=== PATIENT | male | born 1950 | race Caucasian/White ===

== ENCOUNTER 2020-07-21 20:50 | Observation (INO) | payer OTHER, SELFPAY ==
[2020-07-21 20:59] VITALS: BP 137/66; PULSE 85; RESP 20; TEMP 37.8; O2SAT 96; BMI 24.7
[2020-07-21 23:15] VITALS: PULSE 71; RESP 22; O2SAT 98
[2020-07-21 23:30] VITALS: PULSE 67; RESP 16; O2SAT 96
[2020-07-21 23:30] LABS: INR 1.2 (0.9-1.3)
[2020-07-21 23:31] VITALS: BP 114/58; PULSE 69; RESP 17; O2SAT 97
[2020-07-21 23:33] LABS: PTT Partial Thromboplastin Tim 35 SECONDS (26.4-36.2)
[2020-07-21 23:34] LABS: Bacteria Urine None Seen; RBC Urine None Seen (0-5/HPF)
[2020-07-21 23:35] LABS: Alanine Aminotransferase 73 IU/L (<50); Albumin 2.8 g/dL (3.5-5.0); Alkaline Phosphatase 57 U/L (38-126); Aspartate Aminotransferase 137 IU/L (17-59); Bilirubin Total 0.3 mg/dL (0.2-1.3); Blood Urea Nitrogen 13 mg/dL (9-20); Calcium 7.9 mg/dL (8.4-10.2); Carbon Dioxide 25 mmol/L (22-32); Chloride 108 mmol/L (98-107); Estimated Glomerular Filt Rate > 60.0 mL/min (>60); Globulin 2.9 g/dL (1.7-4.1); Glucose 108 mg/dL (80-110); HEMOLYSIS 22 (0-50); Hematocrit 36.3 % (41-53); Lipase 54 U/L (23-300); Mean Corpuscular Volume 96.9 fL (80-100); Platelet Count 164 X10^3/uL (150-400); Potassium 3.9 mmol/L (3.4-5.1); Red Blood Cell Count 3.75 X10^6/uL (4.5-5.9); Sodium 133 mmol/L (137-145); Total Protein 5.7 g/dL (6.3-8.2); White Blood Cell Count 3.1 X10^3/uL (4.5-11.0)
[2020-07-21 23:37] LABS: Add Manual Diff / Slide Review YES
[2020-07-22] VITALS (21 sets, daily range): BP systolic 101–147; BP diastolic 48–102; PULSE 62–79; RESP 12–28; TEMP 36.3–37.2; O2SAT 96–100; BMI 23.8
[2020-07-22 00:03] LABS: Culture Indicated Urine Cult Not Indicated; Squamous Epithelial Cell Urine 1-5 /HPF (0-5/HPF); WBC Urine 5-10/HPF (0-5/HPF)
[2020-07-22 00:21] LABS: Neutrophils Absolute Manual 2573 /uL (3000-5900); Total Cells Counted 100
[2020-07-22 00:22] LABS: RBC Morphology Normal Morphology
--- NOTE | 2020-07-22 00:46 | ED.ABDPAIN ---
HPI - Abdominal Pain General Chief Complaint: Abdominal Pain Stated Complaint: headache, fever, nausea, lower abdomen tenderness Time Seen by Provider: 07/22/20 00:04 Source: patient Mode of arrival: Ambulatory Limitations: no limitations History of Present Illness HPI narrative: 69-year-old gentleman with a history of Crohn's disease currently on Humira with history of hypertension and hyperlipidemia who has been feeling generally unwell for the last 4 days. Four days ago he describes being significantly chilled and having diarrhea without blood seem to improve with Tylenol. Three days ago had normal temperatures 2 days ago temperature is noted to be 100.8 and yesterday he was seen in [place] at the urgent care clinic diagnosed with urinary tract infection given a dose of IM antibiotics, presumably ceftriaxone, for urinary tract infection. He had been describing some symptoms of increasing frequency, cloudy urine and general malaise. Yesterday describing low temps with mild left lower quadrant pain that now has entirely resolved. He is no longer noting any dysuria. He has no vomiting, no chest pain no palpitations no dyspnea no orthopnea no headache. Related Data Home Medications Medication Instructions Recorded Confirmed CA PANTOTHENATE/FOLIC ACID/VIT 1 tab PO QDAY #0 05/03/12 (MULTIVITAMIN) aspirin 81 mg PO QDAY #0 05/03/12 furosemide [Lasix] 20 mg PO QDAY #0 05/05/12 potassium chloride #0 05/05/12 Allergies Allergy/AdvReac Type Severity Reaction Status Date / Time No Known Drug Allergies Allergy Verified 07/21/20 21:05 Review of Systems Review of Systems Narrative: Remainder of review of systems including constitutional, ENT, cardiovascular, respiratory, GI, , musculoskeletal, skin, neurologic and psychiatric systems reviewed and are unremarkable except as noted in HPI. Patient History Medical History (Updated 07/22/20 @ 04:51 by Janelle Jonas MD) ASCVD (arteriosclerotic cardiovascular disease) Crohn's disease Hyperlipidemia Hypertension Intestinal anastomosis present Social History Smoking Status: Former smoker Smoking Status: Former smoker alcohol intake frequency: 0-2 drinks per day Substance Use Type: does not use Exam Narrative Exam Narrative: General: Healthy appearing, in mild distress. Able to give a complete and coherent history. Well-nourished well-developed HEENT: Moist mucous membranes, normal sclera with reactive pupils, Neck: No JVD, supple Respiratory: Lungs are clear to auscultation, no wheezing no rales no rhonchi. Full and symmetrical air movement Cardiac: Regular rate and rhythm no murmurs no bruits Abdomen: Soft, minimally tender without rebound or guarding, hyperactive bowel tones, no flank pain. 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 Skin: Warm and dry, no rashes Neurologic: Grossly neurologically intact with no obvious asymmetries or abnormalities Extremities: No trauma, well perfused Psych: Cooperative, appropriate insight and affect Initial Vital Signs Initial Vital Signs: Vital Signs Temperature 100.0 F H 07/21/20 20:59 Pulse Rate 85 07/21/20 20:59 Respiratory Rate 20 07/21/20 20:59 Blood Pressure 137/66 07/21/20 20:59 Pulse Oximetry 96 07/21/20 20:59 Course Orders Ordered: ED Orders 07/21/20 22:56 EKG-12 Lead Stat 07/21/20 23:16 Complete Blood Count AUTO DIFF Stat Comprehensive Metabolic Panel Stat Lipase Stat Partial Thromboplastin Time Stat Prothrombin Time INR Stat 07/21/20 23:26 Urine Microscopic Stat 07/22/20 00:58 CT abdomen pelvis w con Stat Discontinued Medications Piperacillin Sod/Tazobactam (Sod 4.5 gm/ Sodium Chloride) 100 mls @ 200 mls/hr IV NOW ONE Stop: 07/22/20 04:51 Vital Signs Vital signs: Vital Signs - 8 hr 07/21/20 20:59 07/21/20 23:15 07/21/20 23:30 Temperature 100.0 F H Pulse Rate 85 71 67 Respiratory Rate 20 22 16 Blood Pressure 137/66 Pulse Oximetry 96 98 96 07/21/20 23:31 07/22/20 00:00 07/22/20 00:01 Temperature Pulse Rate 69 72 71 Respiratory Rate 17 18 19 Blood Pressure 114/58 L 119/59 L Pulse Oximetry 97 99 98 07/22/20 00:30 07/22/20 00:31 07/22/20 01:00 Temperature Pulse Rate 66 63 78 Respiratory Rate 18 19 21 Blood Pressure 109/56 L Pulse Oximetry 99 99 100 07/22/20 01:01 Temperature Pulse Rate 76 Respiratory Rate 18 Blood Pressure 147/67 H Pulse Oximetry 100 MDM - Abdominal Pain Medical Records Attestation: I reviewed the patient's medical records. Lab Data Attestation: I reviewed the patient's lab results. Result diagrams: 07/21/20 23:16 07/21/20 23:16 Labs: Lab Results 07/21/20 07/21/20 07/21/20 Range/Units 23:16 23:16 23:16 WBC 3.1 L (4.5-11.0) X10^3/uL RBC 3.75 L (4.5-5.9) X10^6/uL Hgb 12.0 L (13.5-17.5) g/dL Hct 36.3 L (41-53) % MCV 96.9 (80-100) fL MCH 32.0 (26-34) PG MCHC 33.0 (30-36) % RDW 13.0 (11.6-14.8) % Plt Count 164 (150-400) X10^3/uL Neut % (Auto) Not Reportable Lymph % (Auto) Not Reportable [place] % (Auto) Not Reportable Eos % (Auto) Not Reportable Baso % (Auto) Not Reportable Lymph # (Auto) Not Reportable [place] # (Auto) Not Reportable Baso # (Auto) Not Reportable Total Counted 100 Seg Neutrophils % 56.0 (38-70) % Band Neutrophils % 27.0 H (3-7) % Lymphocytes % (Manual) 6.0 L (25-45) % Atypical Lymphs % 7.0 H ( - 0) % Monocytes % (Manual) 2.0 (2-11) % Eosinophils % (Manual) 1.0 L (2-4) % Basophils % (Manual) 1.0 (0-1) % Neutrophils # (Manual) 2573 L (0488-2471) /uL RBC Morphology Normal morphology PT 14.0 H (10.1-12.7) SECONDS INR 1.2 (0.9-1.3) APTT 35 (26.4-36.2) SECONDS Sodium 133 L (137-145) mmol/L Potassium 3.9 (3.4-5.1) mmol/L Chloride 108 H (98-107) mmol/L Carbon Dioxide 25 (22-32) mmol/L BUN 13 (9-20) mg/dL Creatinine 1.00 (0.66-1.25) mg/dL Estimated GFR > 60.0 (>60) mL/min BUN/Creatinine Ratio 13.0 (6-22) Glucose 108 (80-110) mg/dL Calcium 7.9 L (8.4-10.2) mg/dL Total Bilirubin 0.3 (0.2-1.3) mg/dL AST 137 H (17-59) IU/L ALT 73 H (<50) IU/L Alkaline Phosphatase 57 (38-126) U/L Total Protein 5.7 L (6.3-8.2) g/dL Albumin 2.8 L (3.5-5.0) g/dL Globulin 2.9 (1.7-4.1) g/dL Albumin/Globulin Ratio 1.0 (1.0-2.8) Lipase 54 (23-300) U/L Urine RBC (0-5/HPF) Urine WBC (0-5/HPF) Ur Squamous Epith Cells (0-5/HPF) Urine Bacteria (None) Ur Culture Indicated? 07/21/20 Range/Units 23:26 WBC (4.5-11.0) X10^3/uL RBC (4.5-5.9) X10^6/uL Hgb (13.5-17.5) g/dL Hct (41-53) % MCV (80-100) fL MCH (26-34) PG MCHC (30-36) % RDW (11.6-14.8) % Plt Count (150-400) X10^3/uL Neut % (Auto) Lymph % (Auto) [place] % (Auto) Eos % (Auto) Baso % (Auto) Lymph # (Auto) [place] # (Auto) Baso # (Auto) Total Counted Seg Neutrophils % (38-70) % Band Neutrophils % (3-7) % Lymphocytes % (Manual) (25-45) % Atypical Lymphs % ( - 0) % Monocytes % (Manual) (2-11) % Eosinophils % (Manual) (2-4) % Basophils % (Manual) (0-1) % Neutrophils # (Manual) (0485-8333) /uL RBC Morphology PT (10.1-12.7) SECONDS INR (0.9-1.3) APTT (26.4-36.2) SECONDS Sodium (137-145) mmol/L Potassium (3.4-5.1) mmol/L Chloride (98-107) mmol/L Carbon Dioxide (22-32) mmol/L BUN (9-20) mg/dL Creatinine (0.66-1.25) mg/dL Estimated GFR (>60) mL/min BUN/Creatinine Ratio (6-22) Glucose (80-110) mg/dL Calcium (8.4-10.2) mg/dL Total Bilirubin (0.2-1.3) mg/dL AST (17-59) IU/L ALT (<50) IU/L Alkaline Phosphatase (38-126) U/L Total Protein (6.3-8.2) g/dL Albumin (3.5-5.0) g/dL Globulin (1.7-4.1) g/dL Albumin/Globulin Ratio (1.0-2.8) Lipase (23-300) U/L Urine RBC None seen (0-5/HPF) Urine WBC 5-10/hpf H (0-5/HPF) Ur Squamous Epith Cells 1-5 /hpf (0-5/HPF) Urine Bacteria None seen (None) Ur Culture Indicated? Cult not indicated Point of care testing: Urine Dip Bedside Urine Glucose Negative Bedside Urine Bilirubin - Negative Bedside Urine Ketone - Negative Urine Specific [place] 1.025 Bedside Urine Occult Blood - Negative Bedside Urine pH 6.0 Bedside Urine Protein + 30 Bedside Urine Urobilinogen - Negative Bedside Urine Nitrite - Negative Bedside Urine Leukocytes - Negative Esterase Imaging Data CT scan - abdomen/pelvis: Radiologist's Impression: Abnormal mural thickening of the duodenum and proximal jejunum may reflect infectious or inflammatory enteritis Prior enteric anastomosis in the mid left abdomen with focal dilation without obstruction. Mid right abdomen enterocolonic anastomosis without obstruction Diverticulosis coli without inflammation Left inguinal hernia containing colon without strangulation or obstruction Roscoe Rivera MD ECG Data Attestation: I personally reviewed and interpreted this ECG as follows: Interpretation: Sinus rhythm with first-degree block PACs and occasional paced rhythm Right bundle branch block No acute ischemia MDM Narrative Medical decision making narrative: 69-year-old gentleman with history of Crohn's disease multiple bowel surgeries no evidence of obstruction but 4 days of general malaise with leukocytopenia and significant bandemia and CT scan with suggestion of an infectious enteritis affecting the duodenum and proximal jejunum. As he is on Humira and significant risk for further infection and has been partially treated with a dose of IM ceftriaxone for presumed urinary tract infection yesterday will suggest that he remain in the hospital with IV antibiotics for continued observation at this time Care is reviewed with Mr. Mcmahon, hospitalist RAFA and patient is accepted. Discharge Plan Departure Patient Disposition: Admitted as Observation Clinical Impression: Bandemia Crohn's disease Qualifiers: Gastrointestinal tract location: unspecified location Digestive disease complication type: unspecified complication Qualified Code(s): K50.919 - Crohn's disease, unspecified, with unspecified complications Enteritis, infectious Qualifiers: Enteritis organism: unspecified infectious agent Qualified Code(s): A09 - Infectious gastroenteritis and colitis, unspecified Admit Date/Time: 07/22/20 04:50 Admit Provider: Juanpablo Mcmahon
--- NOTE | 2020-07-22 00:58 | DI.CT.S_ITS ---
PROCEDURE: CT ABDOMEN PELVIS W CON INDICATIONS: fever, bandemia, h/o chrons and abd pain, bowel resections TECHNIQUE: After the administration of intravenous contrast, 5 mm thick sections acquired from the diaphragm to the symphysis. 5 mm coronal and sagittal reformats were acquired. For radiation dose reduction, the following was used: automated exposure control, adjustment of mA and/or kV according to patient size. COMPARISON: [facility], CT, CT ABD PELVIS W CON, 04/15/2015, 21:07. FINDINGS: Image quality: Excellent. ABDOMEN: Lung bases: Lung bases are clear. Heart size is normal. Pacemaker. Solid organs: Liver is normal in size and enhancement. Gallbladder is surgically absent. Biliary system is non dilated. Pancreas enhances normally. Spleen is normal in size and enhancement. No adrenal nodules. Kidneys demonstrate normal size and enhancement, without hydronephrosis. Nonobstructing 3 mm right upper pole renal stone. Peritoneum and bowel: The 2nd portion and 3rd portion of the duodenum and most proximal jejunum have mild diffuse wall thickening without associated surrounding inflammatory change. Mild wall thickening of a loop of small bowel immediately posterior to a previous midline abdominal surgical site. Multiple prior partial bowel resections. No bowel obstruction. No strictures at the anastomotic sites. Left inguinal hernia contains a significant amount of descending colon and sigmoid colon. Diverticulosis without evidence of diverticulitis. Nodes and vessels: No retroperitoneal or mesenteric adenopathy by size criteria. Aorta and inferior vena cava are normal in size. Miscellaneous: No ventral hernias. PELVIS: Genitourinary: Bladder wall thickness is normal. Miscellaneous: Left inguinal hernia contains nonobstructed left colon and sigmoid colon. Bones: No suspicious bony lesions. No vertebral body compression fractures. IMPRESSION: 1. Nonspecific mild thickening of the 2nd portion and 3rd portion of duodenum and proximal jejunum. Consider infectious versus inflammatory enteritis. 2. Multiple prior bowel resections. 3. No evidence of bowel obstruction. 4. Left inguinal hernia containing colon. 5. No abscess cavities. 6. Diverticulosis. 7. Right renal nonobstructing stone. Comment: Final report is concordant with preliminary interpretation provided by [facility]. Dictated by: Jacobo Soares M.D. on 07/22/2020 at 6:57 Approved by: Jacobo Soares M.D. on 07/22/2020 at 7:05
--- NOTE | 2020-07-22 05:23 | P.HP_ITS ---
History of Present Illness History of Present Illness Date Patient Seen: 07/22/20 Chief complaint: headache, fever, nausea, lower abdomen tenderness Narrative: Mr. Vishnu Kendall this 69-year-old male patient who has a past smoker with a past medical history significant for atrial flutter with tachyarrhythmias (s/p pacemaker implantation), coronary artery disease (status post coronary stenting), Crohn's disease, atherosclerotic cardiovascular disease, hypertension and hyperlipidemia who presents to the ER complaints of abdominal pain. Patient reports onset of fevers and chills starting on Thursday. 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 He went to the walk- in clinic where he was diagnosed with urinary tract infection and received a shot of Rocephin and a prescription for ciprofloxacin to take twice daily which he never started. After being seen in the walk-in clinic started developing c rampy left lower abdominal pain with nausea and diarrhea. His pain was progressive with continued fevers and chills prompting him to present to the ER for further evaluation. The patient has a history of Crohn's and denies blood in his stool. He states he has had similar episodes before and been on antibiotics. He has had 4 bowel resections for his Crohn's disease. He denies headaches or dizziness, nasal congestion or sore throat. Reports no complaints of chest pain or palpitations. Has abdominal pain as described. He denies urinary symptoms with no urgency burning or frequency or hematuria. He has nocturia 1 time nightly. Patient is independent in all activities daily. Upon arrival the ER the patient has temperature 100.0?, heart rate of 85, blood pressure 137/66, respiratory rate of 20, saturation 96%. CT of the abdomen pelvis is obtained finding abnormal mural thickening of the duodenum and proximal jejunum which may reflect infectious or inflammatory enteritis. Prior to [place] anastomoses in the mid left abdomen without focal dilation or obstruction mid right abdomen enteric anastomosis with without obstruction diverticulosis without inflammation left inguinal hernia containing colon without strangulation or obstruction. Twelve lead EKG: Atrial flutter with variable block, atrial paced, inferior infarct of undetermined age. On CBC the patient had WBCs of 3.1, hemoglobin of 12 and hematocrit of 36.3 and platelets 164. He has a bandemia of 27% in neutropenia at 2573. His coagulation studies are unremarkable. Chemistries reveal a sodium 133 and otherwise findings are within normal range with a BUN of 13 and creatinine 1.0. His nonfasting glucose is 108. He has a total bilirubin of 0.3, AST 137, ALT of 73 and alkaline phosphatase of 57. Albumin is 2.8. His urinalysis is negative. COVID screening is negative. In the ER the patient received Zosyn 4.5 g IV. He is admitted to the medicine service for infectious enteritis. Patient History Medical History (Updated 07/22/20 @ 06:20 by RAFA Wagoner) ASCVD (arteriosclerotic cardiovascular disease) Crohn's disease History of tachycardia Hyperlipidemia Hypertension Surgical History (Updated 07/22/20 @ 06:20 by RAFA Wagoner) History of abdominal surgery History of heart artery stent History of pacemaker Family & Social History Family History Father Heart attack Mother Diabetes mellitus Sister Non-Hodgkin's lymphoma Safety & Behavioral: Feels Safe in Current Yes Environment Tobacco & Substance use: Smoking Status Former smoker alcohol intake frequency 0-2 drinks per day Substance Use Type does not use Meds Home Medications and Allergies Home Medications Medication Instructions Recorded Confirmed Type aspirin 81 mg PO QDAY #0 05/03/12 07/22/20 History B Complex-Vitamin B12 500 mg DAILY 07/22/20 07/22/20 History Lactobacillus acidophilus 1 cap PO DAILY 07/22/20 07/22/20 History adalimumab [Humira(CF) Pen] 40 mg SUBCUT Q2W 07/22/20 07/22/20 History carvedilol 12.5 mg PO BID 07/22/20 07/22/20 History cyanocobalamin (vitamin B-12) 1,000 mcg IM 07/22/20 History lisinopril 2.5 mg PO DAILY 07/22/20 07/22/20 History magnesium chloride 64 meq PO BID 07/22/20 07/22/20 History simvastatin 5 mg PO ONCE HS 07/22/20 07/22/20 History spironolactone 25 mg PO DAILY 07/22/20 07/22/20 History Allergies Allergy/AdvReac Type Severity Reaction Status Date / Time No Known Drug Allergies Allergy Verified 07/21/20 21:05 Review of Systems Review of Systems ROS: Yes All systems reviewed with the patient and are negative except as otherwise documented Exam Vital Signs (past 8 hours): - 07/21/20 20:59 07/21/20 23:15 07/21/20 23:30 Temperature 100.0 F H Pulse Rate 85 71 67 Respiratory Rate 20 22 16 Blood Pressure 137/66 Pulse Oximetry 96 98 96 07/21/20 23:31 07/22/20 00:00 07/22/20 00:01 Temperature Pulse Rate 69 72 71 Respiratory Rate 17 18 19 Blood Pressure 114/58 L 119/59 L Pulse Oximetry 97 99 98 07/22/20 00:30 07/22/20 00:31 07/22/20 01:00 Temperature Pulse Rate 66 63 78 Respiratory Rate 18 19 21 Blood Pressure 109/56 L Pulse Oximetry 99 99 100 07/22/20 01:01 07/22/20 01:30 07/22/20 01:31 Temperature Pulse Rate 76 66 79 Respiratory Rate 18 28 H Blood Pressure 147/67 H 144/102 H Pulse Oximetry 100 97 07/22/20 01:59 07/22/20 03:00 07/22/20 03:02 Temperature Pulse Rate 72 70 Respiratory Rate 18 23 Blood Pressure 118/58 L Pulse Oximetry 96 96 07/22/20 03:30 07/22/20 04:00 07/22/20 04:30 Temperature Pulse Rate 72 72 70 Respiratory Rate 14 12 19 Blood Pressure 147/68 H 131/65 126/62 Pulse Oximetry 99 97 96 07/22/20 05:00 Temperature Pulse Rate 75 Respiratory Rate 22 Blood Pressure 133/67 Pulse Oximetry 96 Oxygen Delivery Method Room Air Narrative Exam Narrative: GENERAL APPEARANCE: well developed, well nourished, lying semi recumbent in bed, in no acute distress. HEENT: Normocephalic, PERRLA, conjunctiva clear, EOMs intact without nystagmus, no sinus tenderness to percussion, no rhinorrhea, mucous membranes are dry and pink NECK/THYROID: neck supple, no JVD, no carotid bruit, no thyromegaly, trachea midline. LYMPH NODES: no cervical or supraclavicular lymphadenopathy. SKIN: [place], warm and dry, no visible lesions, rashes, ulcerations or petechiae. HEART: Irregularly irregular rhythm, S1-S2, no murmur, no rubs or gallops, brisk capillary refill, no edema LUNGS: clear to auscultation bilaterally, no coarseness crackles or wheezing, no cough present CHEST: Symmetrical movement, no accessory muscle use, good tidal volume. ABDOMEN: Soft, round, tympanic to percussion, generalized abdominal tenderness most prominent in the left lower quadrant, no guarding or peritoneal signs, no organomegaly, no flank tenderness, active bowel tones. BACK: Nontender, no pain on straight leg raise EXTREMITIES: moves all extremities, strength is 5/5 and symmetrical, no deformities or joint effusions. NEUROLOGIC: AAO x4, no focal neurologic deficits, cranial nerves II-XII grossly intact, sensation intact to light touch, hearing grossly normal to speech. PSYCH: Alert and briskly responsive, coooperative, appropriate with stable behavior Objective Labs Result Diagrams: 07/21/20 23:16 07/21/20 23:16 Labs: Laboratory Results - last 24 hr 07/21/20 07/21/20 07/21/20 23:16 23:16 23:16 WBC 3.1 L RBC 3.75 L Hgb 12.0 L Hct 36.3 L MCV 96.9 MCH 32.0 MCHC 33.0 RDW 13.0 Plt Count 164 Neut % (Auto) Not Reportable Lymph % (Auto) Not Reportable [place] % (Auto) Not Reportable Eos % (Auto) Not Reportable Baso % (Auto) Not Reportable Lymph # (Auto) Not Reportable [place] # (Auto) Not Reportable Baso # (Auto) Not Reportable Total Counted 100 Seg Neutrophils % 56.0 Band Neutrophils % 27.0 H Lymphocytes % (Manual) 6.0 L Atypical Lymphs % 7.0 H Monocytes % (Manual) 2.0 Eosinophils % (Manual) 1.0 L Basophils % (Manual) 1.0 Neutrophils # (Manual) 2573 L RBC Morphology Normal morphology PT 14.0 H INR 1.2 APTT 35 Sodium 133 L Potassium 3.9 Chloride 108 H Carbon Dioxide 25 BUN 13 Creatinine 1.00 Estimated GFR > 60.0 BUN/Creatinine Ratio 13.0 Glucose 108 Calcium 7.9 L Total Bilirubin 0.3 AST 137 H ALT 73 H Alkaline Phosphatase 57 Total Protein 5.7 L Albumin 2.8 L Globulin 2.9 Albumin/Globulin Ratio 1.0 Lipase 54 Urine RBC Urine WBC Ur Squamous Epith Cells Urine Bacteria Ur Culture Indicated? 07/21/20 23:26 WBC RBC Hgb Hct MCV MCH MCHC RDW Plt Count Neut % (Auto) Lymph % (Auto) [place] % (Auto) Eos % (Auto) Baso % (Auto) Lymph # (Auto) [place] # (Auto) Baso # (Auto) Total Counted Seg Neutrophils % Band Neutrophils % Lymphocytes % (Manual) Atypical Lymphs % Monocytes % (Manual) Eosinophils % (Manual) Basophils % (Manual) Neutrophils # (Manual) RBC Morphology PT INR APTT Sodium Potassium Chloride Carbon Dioxide BUN Creatinine Estimated GFR BUN/Creatinine Ratio Glucose Calcium Total Bilirubin AST ALT Alkaline Phosphatase Total Protein Albumin Globulin Albumin/Globulin Ratio Lipase Urine RBC None seen Urine WBC 5-10/hpf H Ur Squamous Epith Cells 1-5 /hpf Urine Bacteria None seen Ur Culture Indicated? Cult not indicated Assessment & Plan Assessment & Plan narrative: This is a 69-year-old male patient with history significant for atrial flutter with tachyarrhythmias (s/p pacemaker implantation), coronary artery disease (status post coronary stenting), Crohn's disease, atherosclerotic cardiovascular disease, hypertension and hyperlipidemia who presents to the ER with abdominal plain with findings of infectious enteritis. 1. Infectious enteritis with history Crohn's disease, present on admission, active -fevers and chills for 4 days, treated with Rocephin at walking clinic on Thursday subsequently developing abdominal pain and nausea yesterday. Patient denies blood in the stool. -bands of 27%, white count of 3.1, hemoglobin of 12 and platelets of 164. Pancytopenia, believed to be chronic on Humira for Crohn's disease. -patient has had fevers and chills at home presents with a temperature of 100? upon arrival to the ER. -ordered Zosyn 3.375 g every 6 hours. -ordered Flagyl 500 mg IV every 8 hours. -patient remain NPO, normal saline at 100 cc per 2. Mid left lung pneumonia, acute, present on admission, active -ordered chest x-ray related to significant bandemia, finding patchy airspace disease with mid left lung infiltrates. -patient is on Zosyn as above, 3.375 g IV every 6 hours. 3. Tachy arrhythmias, status post permanent pacemaker, chronic, stable -patient self reports that he has had heart rates up into the 200s and 12 lead EKG today shows atrial flutter with variable conduction at a rate 73 -patient denies chest pain and is unaware of his irregular heart rate. -continue carvedilol 12.5 mg twice daily. 4. Coronary artery disease, chronic, stable -no current complaints of chest pain or palpitations -troponin is 0.019 and a proBNP is 2080. -continue aspirin 81 mg daily with no evidence of bleeding from Crohn's disease. -telemetry 5. Hypertension, chronic, stable -continue home regimen of lisinopril 2.5 mg daily 6. Hyperlipidemia, chronic, stable -continue home regimen of simvastatin 5 mg daily. VTE prophylaxis: Enoxaparin IV fluid: Normal saline 100 cc/hour Diet: NPO Code status: Full code, the patient designates his to be his surrogate decision maker. Due to the severity and progression of his symptoms patient is admitted to the hospital to prevent further complications or adverse events. The patient is admitted as an inpatient requiring IV antibiotics for infectious enteritis in the setting of Crohn's disease and mild pancytopenia. Scores GCS [place] coma scale eye opening: Spontaneous Des coma scale verbal response: Orientated [place] coma scale motor response: Obey commands [place] coma scale total score: 15
--- NOTE | 2020-07-22 05:28 | DI.RAD.S_ITS ---
PROCEDURE: XR CHEST 1V INDICATIONS: Fever, cardiac arrhythmia TECHNIQUE: One view of the chest was acquired. COMPARISON: [facility], , CHEST 1 VIEW, 05/05/2012, 22:15. FINDINGS: Surgical changes and devices: Pacemaker Lungs and pleura: Lungs are clear No pleural effusions or pneumothorax. Mediastinum: Mediastinal contours appear normal. Heart size is normal. Bones and chest wall: No suspicious bony lesions. Overlying soft tissues appear unremarkable. IMPRESSION: No evidence acute pulmonary process. Comment: Findings were discussed with the hospitalist caring for the patient at the time of study dictation. Dictated by: Jacobo Soares M.D. on 07/22/2020 at 8:11 Approved by: Jacobo Soares M.D. on 07/22/2020 at 8:18
[2020-07-22] MEDS: SODIUM CHLORIDE 0.9% 1,000 ML 100 ML IV ×2 (05:45→17:02)
[2020-07-22 05:46] LABS: COVID19 -Nasal RAPID Negative (Negative)
[2020-07-22] MEDS: PIPERACILLIN/TAZO 4.5 GM in SODIUM CHLORIDE 0.9% 100 ML 200 ML IV (05:46)
[2020-07-22 06:29] LABS: Creatine Kinase 311 U/L (55-170)
[2020-07-22 06:33] LABS: Magnesium 1.8 mg/dL (1.6-2.3)
[2020-07-22 06:38] LABS: NT-proBNP (BNP-Adult 18+) 2080 pg/mL (<125)
[2020-07-22 06:42] LABS: Troponin I 0.019 ng/mL (0.01-0.034)
[2020-07-22 07:10] LABS: CKMB % Relative Index 0.9 % (1.5-5.0); Creatine Kinase MB 2.78 ng/mL (<2.37)
[2020-07-22] MEDS: ENOXAPARIN 40 MG/0.4 ML SYRINGE SUBCUT (08:54)
[2020-07-22] MEDS: lisinopriL 5 MG TABLET 2.5 MG PO (08:54)
[2020-07-22] MEDS: ASPIRIN EC 81 MG TABLET PO (08:54)
[2020-07-22] MEDS: carvediloL 12.5 MG TABLET PO ×2 (08:54→20:24)
[2020-07-22] MEDS: ONDANSETRON 4 MG/2 ML INJ IV (09:00)
[2020-07-22] MEDS: SODIUM CHLORIDE 0.9% FLUSH 10 ML IV (09:09)
--- NOTE | 2020-07-22 10:44 | PC.NURSE ---
Addendum entered by Ursula Velez R.N. 07/22/20 10:55: Bed alarm active; patient sleeping Original Note: BTs hypoactive, diarrhea, SBA to bathroom, bed alarm active; pt reports mild nausea, IV zofran; IV fluids infusing; LS clear; VSS
--- NOTE | 2020-07-22 10:50 | CM.DANOTE ---
Patient is a 69 year old male who was admitted on 07/22/20 for Fever/Abd Pain. Pt has [employer] [facility] for insurance and his PCP is at the [facility]. EMR was reviewed. Per MD, pt with a hx of Crohns, AFIB, coronary artery, and hypertension. Pt admitted with infectious enteritis with unknown etiology and pneumonia. MD anticipates possible d/c home tomorrow on orals if he remains stable. SW met bedside with pt and explained role and pt confirms he lives in [place] with his spouse and no other local family. 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 Pt denies any hx of HH or SNF but confirms he has a hx of 4 bowel resections due to his Crohns disease. Pt does not anticipate any SW needs at d/c and was hopeful to discharge home today but confirms he still is not feeling very well today. Pt somewhat somnolent but does state he is feeling quite tired. Plan: SW to follow closely for plan of possible d/c home on orals tomorrow if he is stable via spouse POV. SW to follow for any further identified discharge planning needs. CLARA Piedra Discharge Planning/Care Management CM Discharge Assessment Start: 07/22/20 10:49 Freq: Status: Active Protocol: Document 07/22/20 10:49 BF (Rec: 07/22/20 10:50 BF [id number]) Discharge Planning Assessment Assigned Industrial Controller CLARA Romo DPOA/Assigned Designee Name spouse Advance Directives? No Advance Directives on File No History Provided By Patient,Medical Record Has Patient been admitted in last 30 No days? Prior Living Arrangements House Household Members spouse Type of transporation used prior to Drives own vehicle admit Independent with ADL's Yes Is patient alert and oriented? Yes Caregiver for Another No Barriers to Discharge No Discharge Plan Home Transportation Arrangement Spouse will make herself available to transport home at d/c Referrals Initiated None needed Whiteboard Updated in Patient Room with Yes name and ext. # of Industrial Controller Review Status In Process Please Provide Date Initial DC 07/22/20 Assessment Was Performed Next Review Type Continued Stay Review
[2020-07-22] MEDS: PIPERACILLIN-TAZO 3.375 GM/50 ML FROZ.PIGGY IV ×3 (11:12→22:36)
[2020-07-22] MEDS: SIMVASTATIN 20 MG TABLET 5 MG PO (20:24)
[2020-07-23 00:11] VITALS: BP 99/49; PULSE 54; RESP 18; TEMP 36.8; O2SAT 93
--- NOTE | 2020-07-23 00:42 | PC.NURSE ---
Addendum entered by Paulette Todd R.N. 07/23/20 04:38: BP now 111/54, MAP 73. No s/s of distress. Original Note: BP 99/49, MAP 65. Pt asymptomatic, lying in bed. Encouraged to drink plenty of water to keep hydrated. Pt verbalized understanding. Will repeat again before shift end. Allowing pt to sleep. No s/s of distress.
--- NOTE | 2020-07-23 02:07 | PC.NURSE ---
Patient received sleeping in bed. Easily awakened. Pleasant and Ox3, agreeable to assessment. Denies need for pain medication, requesting to sleep. IVF NS @ 100 ml/hr. Denies nausea. +BS x4. reports x1 loose stool prior day. Tolerating IV antibiotics without s/sx of ASE.
[2020-07-23 04:00] VITALS: BP 111/54; PULSE 67; RESP 18; TEMP 36.3; O2SAT 97
[2020-07-23] MEDS: SODIUM CHLORIDE 0.9% 1,000 ML 100 ML IV (04:09)
[2020-07-23] MEDS: PIPERACILLIN-TAZO 3.375 GM/50 ML FROZ.PIGGY IV (04:15)
[2020-07-23 05:30] LABS: Add Manual Diff / Slide Review YES; Hematocrit 34.8 % (41-53); Hemoglobin 11.3 g/dL (13.5-17.5); Mean Corpuscular HGB Conc 32.6 % (30-36); Mean Corpuscular Hemoglobin 31.7 PG (26-34); Mean Corpuscular Volume 97.3 fL (80-100); Platelet Count 159 X10^3/uL (150-400); Red Blood Cell Count 3.58 X10^6/uL (4.5-5.9); Red Cell Distribution Width 13.3 % (11.6-14.8); White Blood Cell Count 3.1 X10^3/uL (4.5-11.0)
[2020-07-23 05:33] LABS: Alanine Aminotransferase 130 IU/L (<50); Albumin 2.4 g/dL (3.5-5.0); Albumin Globulin Ratio 0.9 (1.0-2.8); Alkaline Phosphatase 51 U/L (38-126); Aspartate Aminotransferase 96 IU/L (17-59); BUN Creatinine Ratio 10.9 (6-22); Bilirubin Total 0.2 mg/dL (0.2-1.3); Blood Urea Nitrogen 13 mg/dL (9-20); Calcium 7.7 mg/dL (8.4-10.2); Carbon Dioxide 26 mmol/L (22-32); Chloride 107 mmol/L (98-107); Estimated Glomerular Filt Rate > 60.0 mL/min (>60); Globulin 2.6 g/dL (1.7-4.1); Glucose 126 mg/dL (80-110); HEMOLYSIS < 15 (0-50); Potassium 3.9 mmol/L (3.4-5.1); Sodium 134 mmol/L (137-145)
[2020-07-23 06:35] LABS: Neutrophils Absolute Manual 2356 /uL (3000-5900); Total Cells Counted 100
[2020-07-23 06:36] LABS: RBC Morphology Normal Morphology
[2020-07-23 07:59] VITALS: BP 118/65; PULSE 62; RESP 18; TEMP 36.4; O2SAT 93
[2020-07-23] MEDS: SODIUM CHLORIDE 0.9% FLUSH 10 ML IV (09:03)
[2020-07-23 09:05] VITALS: BP 118/65; PULSE 62
[2020-07-23] MEDS: carvediloL 12.5 MG TABLET PO (09:05)
[2020-07-23] MEDS: ASPIRIN EC 81 MG TABLET PO (09:05)
[2020-07-23] MEDS: lisinopriL 5 MG TABLET 2.5 MG PO (09:05)
[2020-07-23] MEDS: ENOXAPARIN 40 MG/0.4 ML SYRINGE SUBCUT (09:06)
--- NOTE | 2020-07-23 09:18 | PM.DS.1 ---
History of Present Illness History of Present Illness Date Patient Seen: 07/23/20 Time Patient Seen: 09:19 Chief complaint: headache, fever, nausea, lower abdomen tenderness Narrative: As per RAFA Wagoner: Mr. Vishnu Kendall this 69-year-old male patient who has a past smoker with a past medical history significant for atrial flutter with tachyarrhythmias (s/p pacemaker implantation), coronary artery disease (status post coronary stenting), Crohn's disease, atherosclerotic cardiovascular disease, hypertension and hyperlipidemia who presents to the ER complaints of abdominal pain. Patient reports onset of fevers and chills starting on Thursday. 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 He went to the walk-in clinic where he was diagnosed with urinary tract infection and received a shot of Rocephin and a prescription for ciprofloxacin to take twice daily which he never started. After being seen in the walk-in clinic started developing crampy left lower abdominal pain with nausea and diarrhea. His pain was progressive with continued fevers and chills prompting him to present to the ER for further evaluation. The patient has a history of Crohn's and denies blood in his stool. He states he has had similar episodes before and been on antibiotics. He has had 4 bowel resections for his Crohn's disease. He denies headaches or dizziness, nasal congestion or sore throat. Reports no complaints of chest pain or palpitations. Has abdominal pain as described. He denies urinary symptoms with no urgency burning or frequency or hematuria. He has nocturia 1 time nightly. Patient is independent in all activities daily. Upon arrival the ER the patient has temperature 100.0?, heart rate of 85, blood pressure 137/66, respiratory rate of 20, saturation 96%. CT of the abdomen pelvis is obtained finding abnormal mural thickening of the duodenum and proximal jejunum which may reflect infectious or inflammatory enteritis. Prior to Nicholas anastomoses in the mid left abdomen without focal dilation or obstruction mid right abdomen enteric anastomosis with without obstruction diverticulosis without inflammation left inguinal hernia containing colon without strangulation or obstruction. Twelve lead EKG: Atrial flutter with variable block, atrial paced, inferior infarct of undetermined age. On CBC the patient had WBCs of 3.1, hemoglobin of 12 and hematocrit of 36.3 and platelets 164. He has a bandemia of 27% in neutropenia at 2573. His coagulation studies are unremarkable. Chemistries reveal a sodium 133 and otherwise findings are within normal range with a BUN of 13 and creatinine 1.0. His nonfasting glucose is 108. He has a total bilirubin of 0.3, AST 137, ALT of 73 and alkaline phosphatase of 57. Albumin is 2.8. His urinalysis is negative. COVID screening is negative. In the ER the patient received Zosyn 4.5 g IV. He is admitted to the medicine service for infectious enteritis. Discharge Providers Provider Date of admission: 07/22/20 04:50 Discharge Date: 07/23/20 Consults: 07/22/20 05:38 Consult to Discharge Planning Routine Comment: Discharge provider: Juanpablo Samuels DO Summary Hospital Course Discharge Diagnosis: 1. Infectious enteritis with history Crohn's disease, present on admission, active 2. possible Mid left lung pneumonia, acute, present on admission, active 3. Tachy arrhythmias, status post permanent pacemaker, chronic, stable 4. Coronary artery disease, chronic, stable 5. Hypertension, chronic, stable 6. Hyperlipidemia, chronic, stable Hospital Course: This is a 69-year-old male patient with history significant for atrial flutter with tachyarrhythmias (s/p pacemaker implantation), coronary artery disease (status post coronary stenting), Crohn's disease, atherosclerotic cardiovascular disease, hypertension and hyperlipidemia who presents to the ER with abdominal plain with findings of infectious enteritis. He improved much more quickly than expected and by the following day had improvement in his symptoms and improvement in abdominal pain. CXR did show a possible mid left lung pneumonia, however given lack of pulmonary symptoms this was less likely. He recieved zosyn on admission and this was continued, will discharge on cipro and flagyl for [address] appearance and crohn's disease and immunosuppression. Exam Vital Signs (past 8 hours): - 07/23/20 04:00 07/23/20 07:59 07/23/20 09:05 Temperature 97.4 F L 97.6 F Pulse Rate 67 62 62 Respiratory Rate 18 18 Blood Pressure 111/54 L 118/65 118/65 Pulse Oximetry 97 93 Oxygen Delivery Method Room Air Oxygen Flow Rate 0 Narrative Exam Narrative: GENERAL APPEARANCE: well developed, well nourished, in no acute distress. SKIN: [place], warm and dry, no visible lesions, rashes, ulcerations or petechiae. HEART: Irregularly irregular rhythm, S1-S2, no murmur, no rubs or gallops, brisk capillary refill, no edema CHEST: Symmetrical movement, no accessory muscle use, good tidal volume. ABDOMEN: Soft, non-tender, non-distended EXTREMITIES: moves all extremities, strength is 5/5 and symmetrical, no deformities or joint effusions. NEUROLOGIC: AAO x4, no focal neurologic deficits, cranial nerves II-XII grossly intact, hearing grossly normal to speech. PSYCH: Alert and briskly responsive, coooperative, appropriate with stable behavior Objective Labs Result Diagrams: 07/23/20 05:05 07/23/20 05:05 Labs: Laboratory Results - last 24 hr 07/23/20 07/23/20 05:05 05:05 WBC 3.1 L RBC 3.58 L Hgb 11.3 L Hct 34.8 L MCV 97.3 MCH 31.7 MCHC 32.6 RDW 13.3 Plt Count 159 Neut % (Auto) Not Reportable Lymph % (Auto) Not Reportable Wagoner % (Auto) Not Reportable Eos % (Auto) Not Reportable Baso % (Auto) Not Reportable Lymph # (Auto) Not Reportable Wagoner # (Auto) Not Reportable Baso # (Auto) Not Reportable Total Counted 100 Seg Neutrophils % 60.0 Band Neutrophils % 16.0 H Lymphocytes % (Manual) 11.0 L Monocytes % (Manual) 12.0 H Eosinophils % (Manual) 1.0 L Neutrophils # (Manual) 2356 L RBC Morphology Normal morphology Sodium 134 L Potassium 3.9 Chloride 107 Carbon Dioxide 26 BUN 13 Creatinine 1.19 Estimated GFR > 60.0 BUN/Creatinine Ratio 10.9 Glucose 126 H Calcium 7.7 L Total Bilirubin 0.2 AST 96 H ALT 130 H Alkaline Phosphatase 51 Total Protein 5.0 L Albumin 2.4 L Globulin 2.6 Albumin/Globulin Ratio 0.9 L [facility] Medical History (Updated 07/22/20 @ 06:20 by RAFA Wagoner) ASCVD (arteriosclerotic cardiovascular disease) Crohn's disease History of tachycardia Hyperlipidemia Hypertension Surgical History (Updated 07/22/20 @ 06:20 by RAFA Wagoner) History of abdominal surgery History of heart artery stent History of pacemaker Family History Father Heart attack Mother Diabetes mellitus Sister Non-Hodgkin's lymphoma Social History household members: spouse Smoking Status: Former smoker alcohol intake: current Discharge Plan Discharge Plan Patient Disposition: Home Provider Discharge Comment: You were admitted to the hospital with a possible infectious enteritis. I recommend a short course of antibiotics, 3 days. [facility] C. difficile testing was negative. Discharge orders & Medications Prescriptions: New ciprofloxacin HCl 750 mg tablet 750 mg PO DAILY 3 Days Qty: 3 RF: 0 metronidazole 500 mg tablet 500 mg PO TID 3 Days Qty: 9 RF: 0 Continued aspirin 81 MG tablet,delayed release (DR/EC) 81 mg PO QDAY Qty: 0 RF: 0 Humira(CF) Pen 40 mg/0.4 mL pen injector kit 40 mg SUBCUT Q2W RF: 0 carvedilol 12.5 mg tablet 12.5 mg PO BID RF: 0 simvastatin 5 mg tablet 5 mg PO ONCE HS RF: 0 lisinopril 2.5 mg tablet 2.5 mg PO DAILY RF: 0 spironolactone 25 mg tablet 25 mg PO DAILY RF: 0 magnesium chloride tablet 64 mg PO BID RF: 0 cyanocobalamin (vitamin B-12) auto-injector See Rx Instructions .ROUTE .COMPLEX RF: 0 B Complex-Vitamin B12 tablet 500 mg DAILY RF: 0 Lactobacillus acidophilus capsule 1 cap PO DAILY RF: 0 Discharge Health Status Multidrug resistant organism: No MDRO Diet/Activity/Treatments Diet: Diet as Tolerated Activity: As tolerated Visit Report/Discharge Packet Instructions: Ciprofloxacin, Metronidazole, DI for Enteritis Quality VTE Deep Vein Thrombosis/Pulmonary Embolism Present on Admission: No
[2020-07-23 10:48] LABS: Clostridium Difficile Tox PCR Negative for C. diff
--- NOTE | 2020-07-23 11:04 | PC.NURSE ---
Day shift: Pt had the option of having AM dose of IV antibiotic and he chose not to have it. Tele has been d/c'd per Dr Samuels. Pt resting in bed with no complaints. His spouse should be here from [place] in less than an hour. Pt to d/c home at that time. Stool is NEG for C. diff.
--- NOTE | 2020-07-23 11:51 | PC.NURSE ---
Day shift: Paperwork signed and all questions answered. scripts sent to Pt's pharmacy in [place]. Pt has all personal belongings. No c/o pain or discomfort at discharge. Denied any nausea as well. Taken to car driven by his spouse in by JOSE Kelley.
== END 2020-07-23 11:54 | disposition home or self-care (01) ==
LOC: ED 07-22 00:04 → AC 07-22 04:51 → ICU 07-27 09:25
PROVIDERS: Internal Medicine; Admitting Provider Nurse Practitioner Adult Health; Emergency Provider Emergency Medicine; Referring Provider Emergency Medicine; Visit Provider Nurse Practitioner Adult Health
DX: A09 Infectious gastroenteritis and colitis, unspecified (principal); K50.90 Crohn's disease, unspecified, without complications; I48.92 Unspecified atrial flutter; I25.10 Atherosclerotic heart disease of native coronary artery without angina pectoris; I10 Essential (primary) hypertension; E78.5 Hyperlipidemia, unspecified; Z87.891 Personal history of nicotine dependence; Z95.818 Presence of other cardiac implants and grafts; Z95.0 Presence of cardiac pacemaker; Z20.822 Contact with and (suspected) exposure to COVID-19
CPT/HCPCS: 36415; 71045; 74177; 80053; 81003; 81015; 82550; 82553; 83690; 83735; 83880; 84484; 85007; 85025; 85610; 85730; 87493; 87635; 93005; 96374; 99284; C9803; G0378; J1650; J2405; J2543; Q9967

== ENCOUNTER 2022-05-24 18:13 | Emergency (ER) | payer OTHER, SELFPAY ==
[2020-07-22 05:14] VITALS: BMI 23.8
[2022-05-24 18:19] VITALS: BP 164/76; PULSE 82; RESP 16; TEMP 36.2; O2SAT 97; BMI 23.6
--- NOTE | 2022-05-24 19:42 | ED_ITS ---
HPI - Male Genitourinary General Chief complaint: Urogenital-Male Stated complaint: Blood in urine, noticed today Time Seen by Provider: 05/24/22 19:41 Source: patient Mode of arrival: Ambulatory Limitations: no limitations History of Present Illness HPI Narrative: This is a 71-year-old male who presents with complaint of hematuria he states his urine has been pink and some mild right flank pain. Patient states he has had hematuria before but always had dysuria was found have bladder infections. Patient's notes states no dysuria but has had some urgency sense of frequency. He denies fevers some little bit of chills today. No chest pain or shortness of breath. No abdominal pain anteriorly. No testicular pain. No black or bloody stools. Patient is on aspirin daily. He has a history of AICD, Humira for Crohn's disease, medication for hypertension, dyslipidemia as well as magnesium and potassium supplementation. He states AICD is for tachycardia, he has had cardiac stents. He has had 4 bowel resection for his Crohn's. He denies any drug allergies. No tobacco, 1 alcoholic drink nightly, no illicit. Related Data Home Medications Medication Instructions Recorded Confirmed aspirin 81 mg tablet,delayed 81 mg PO QDAY ##0 05/03/12 07/22/20 release B Complex-Vitamin B12 500 mg DAILY 07/22/20 07/22/20 Lactobacillus acidophilus 1 cap PO DAILY 07/22/20 07/22/20 adalimumab 40 mg/0.4 mL 40 mg SUBCUT Q2W 07/22/20 07/22/20 subcutaneous pen kit (Humira(CF) Pen) carvedilol 12.5 mg tablet 12.5 mg PO BID 07/22/20 07/22/20 cyanocobalamin (vitamin B-12) See Rx Instructions .Route .COMPLEX 07/22/20 07/22/20 lisinopril 2.5 mg tablet 2.5 mg PO DAILY 07/22/20 07/22/20 magnesium chloride 64 mg PO BID 07/22/20 07/22/20 simvastatin 5 mg tablet 5 mg PO ONCE HS 07/22/20 07/22/20 spironolactone 25 mg tablet 25 mg PO DAILY 07/22/20 07/22/20 Previous Rx's Medication Instructions Recorded tamsulosin 0.4 mg capsule (Flomax) 0.4 mg PO DAILY #7 caps 05/24/22 Allergies Allergy/AdvReac Type Severity Reaction Status Date / Time No Known Drug Allergies Allergy Verified 05/24/22 18:19 Review of Systems Review of Systems ROS Unobtainable: All systems reviewed & are unremarkable except as noted in HPI and below Patient History Medical History ASCVD (arteriosclerotic cardiovascular disease) Crohn's disease History of tachycardia Hyperlipidemia Hypertension Surgical History History of abdominal surgery History of heart artery stent History of pacemaker Family History Father Heart attack Mother Diabetes mellitus Sister Non-Hodgkin's lymphoma Social History household members: spouse Smoking Status: Former smoker alcohol intake: current Smoking Status: Former smoker alcohol intake frequency: a few times a month Substance Use Type: does not use Exam Narrative Exam Narrative: GENERAL: Alert and oriented x three, male in mild distress. HEENT: Head normocephalic, atraumatic, EOMI, pupils reactive, face symmetric, moist mucous membranes NECK: Supple, full range of motion CARDIOVASCULAR: Regular rate and rhythm without murmurs, rubs or gallops. RESPIRATORY: Breath sounds equal bilaterally, no wheezes rales or rhonchi. ABDOMEN: Soft, nontender. Normoactive bowel sounds all 4 quadrants. No guarding or rebound, rigidity, no mass : No CVA tenderness EXTREMITIES: Normal range of motion, no clubbing or edema. Neurovascularly intact NEUROLOGICAL: Cranial nerves II through XII grossly intact. Moving all extremities SKIN: Warm, dry, no petechiae, no rashes or lesions. Initial Vital Signs Initial Vital Signs: Vital Signs Temperature 97.2 F L 05/24/22 18:19 Pulse Rate 82 05/24/22 18:19 Respiratory Rate 16 05/24/22 18:19 Blood Pressure 164/76 H 05/24/22 18:19 Pulse Oximetry 97 05/24/22 18:19 Oxygen Delivery Method 05/24/22 18:19 Course Orders Ordered: Discontinued Medications Tamsulosin HCl (Tamsulosin 0.4 Mg Capsule) 0.4 mg PO NOW ONE Stop: 05/24/22 21:22 Last Admin: 05/24/22 21:28 Dose: 0.4 mg Documented By: AT Vital Signs Vital signs: Vital Signs - 8 hr 05/24/22 18:19 05/24/22 20:18 Temperature 97.2 F L Pulse Rate 82 65 Respiratory Rate 16 18 Blood Pressure 164/76 H 134/64 Pulse Oximetry 97 99 Oxygen Delivery Method Room Air Room Air MDM - Male Genitourinary Lab Data Result diagrams: 05/24/22 19:15 05/24/22 19:15 Labs: Lab Results 05/24/22 05/24/22 05/24/22 Range/Units 18:53 19:15 19:15 WBC 6.0 (4.5-11.0) X10^3/uL RBC 3.74 L (4.5-5.9) X10^6/uL Hgb 12.1 L (13.5-17.5) g/dL Hct 35.7 L (41-53) % MCV 95.5 (80-100) fL MCH 32.4 (26-34) PG MCHC 33.9 (30-36) % RDW 13.1 (11.6-14.8) % Plt Count 205 (150-400) X10^3/uL Neut % (Auto) 71.4 (50-75) % Lymph % (Auto) 14.6 L (25-40) % Camden % (Auto) 10.6 (3-14) % Eos % (Auto) 2.9 (2-4) % Baso % (Auto) 0.5 (0-2) % Neut # (Auto) 4300 (7122-5464) /uL Lymph # (Auto) 900 L (5255-0032) /uL Cam[place] # (Auto) 600 (0-900) /uL Eos # (Auto) 200 (0-450) /uL Baso # (Auto) 0 (0-100) /uL Sodium 137 (137-145) mmol/L Potassium 4.2 (3.4-5.1) mmol/L Chloride 104 (98-107) mmol/L Carbon Dioxide 24 (22-32) mmol/L BUN 18 (9-20) mg/dL Creatinine 1.06 (0.66-1.25) mg/dL Estimated GFR > 60 (>60) mL/min BUN/Creatinine Ratio 17.0 (6-22) Glucose 95 (80-110) mg/dL Calcium 7.7 L (8.4-10.2) mg/dL Urine RBC >100/hpf H (0-5/HPF) Urine WBC 0-1/hpf (0-5/HPF) Urine Bacteria None seen (None) Ur Culture Indicated? Cult not indicated Urine Dip Bedside Urine Glucose Negative Bedside Urine Bilirubin - Negative Bedside Urine Ketone - Negative Urine Specific Brunson 1.015 Bedside Urine Occult Blood +++ Bedside Urine pH 6.0 Bedside Urine Protein +/- 15 Bedside Urine Urobilinogen - Negative Bedside Urine Nitrite - Negative Bedside Urine Leukocytes - Negative Esterase Imaging Data CT scan - abdomen/pelvis: Radiologist's Impression: Close Abdomen/Pelvis CT (Signed) Lisandro Hinton - 05/24/22 Chest X-Ray (Signed) Jacobo Soares - 07/22/20 Telemetry Strips 07/22/20 Abdomen/Pelvis CT (Signed) Jacobo Soares - 07/22/20 Launch?[place] [address] CT Scan Report Signed Patient: Vishnu Robins MR#: [id number] : 1950 Acct:[id number] Age/Sex: 71 / M Date of Service: 05/24/22 Loc: ED Accession Number: [id number] ?? Procedure: CT kidney ureter bladder (KUB) Ordering Provider: Tia Manning D.O. PROCEDURE:? CT KIDNEY URETER BLADDER (KUB) ? INDICATIONS:? hematuria, flank pain ? TECHNIQUE:? Axial sections were acquired from the lung bases to the pubic symphysis.? Coronal and sagittal reformats were performed.? For radiation dose reduction, the following was used: ?automated exposure control, adjustment of mA and/or kV according to patient size.? ? COMPARISON:? CT, CT ABDOMEN PELVIS W CON, 07/22/2020, 1:18. ? FINDINGS:? Image quality:? Excellent.? ? Lung bases:? Unremarkable.? ? Heart:? No significant findings. ? URINARY: Right Kidney:? Several punctate calculi which themselves are not obstructive but there is [id number] overall right-sided hydronephrosis.? Right Ureter:? Hydroureter extends from the renal pelvis inferiorly to the bladder level. ?Just above the bladder level there is a 3 mm distal right ureteral stone and slightly below that virtually at the posterior bladder margin there is a 7 mm calculus that measures 943 Hounsfield units.? ? Left Kidney:? Several punctate calculi without hydronephrosis.? Left Ureter:? No hydroureter.? ? Bladder:? Normal wall thickness. No stones. ? ? ? ABDOMEN: Liver:? Unremarkable.? ? Gallbladder:? Unremarkable.? ? Biliary ducts:? Unremarkable.? ? Pancreas:? Unremarkable.? ? Spleen:? Unremarkable.? ? Adrenal Glands:? Unremarkable.? ? ? Stomach and Bowel:? Stomach, small bowel loops, and colon are unremarkable.? Peritoneum:? No abnormal intraperitoneal fluid.? No free air.? ? Ventral Wall: ? No hernia.? Abdominal Nodes:? No enlarged retroperitoneal or mesenteric lymph nodes.? Vessels:? Aorta and inferior vena cava are normal in size.? ? PELVIS: Pelvic Organs:? Unremarkable.? ? Pelvic Nodes: Unremarkable. Miscellaneous: No right-sided inguinal hernia is seen, but there is a moderately large left-sided inguinal hernia without evidence of incarceration or strangulation. ? Bones:? Unremarkable. ? IMPRESSION:? ? [id number] right-sided hydronephrosis and hydroureter associated with 2 far distal right ureteral stones the largest of which measures up to 7 mm with a radiodensity of 943 Hounsfield units.? A stone of this size may not pass without urologic intervention into the bladder lumen. ? Several punctate renal collecting system calculi are present bilaterally, none of which are obstructive. ? Moderately large left inguinal hernia extending to the upper scrotum level, without evidence of bowel incarceration or strangulation ? Dictated by: Lisandro Hinton M.D. on 05/24/2022 at 20:54 ? ? Approved by: Lisandro Hinton M.D. on 05/24/2022 at 21:01?? MDM Narrative Medical decision making narrative: This is a 71-year-old male with complaint of hematuria with a little bit of slight right flank pain. Patient's pain is well controlled. His hemoglobin stable, renal functions normal, electrolytes show no major changes. Patient's urine shows hematuria but no signs of infection. KUB shows 2 stones largest which is 7 mm far distal on the right ureteral side. Patient started on Flomax, given return precautions and referral to Urology to follow up. Also noted patient has a large left inguinal hernia recommended a follow-up for this and return precautions as well. Patient feels comfortable with this plan he defers anything stronger than Tylenol or ibuprofen for pain at home. Patient is aware of his left inguinal hernia. We discussed and he knows surgeon Dr. Bishop at [facility] that he can follow-up with. Discharge Plan Departure Patient Disposition: Home Clinical Impression: Kidney stone on right side, Inguinal hernia, left Instructions: DI for Kidney Stones Activity Restrictions/Additional Instructions: You have kidney stones today. If your symptoms are persisting please follow up with Urology call Thursday morning for an appointment. Take Flomax once daily until gone. You can take Tylenol up to a 1000 mg every 6 hours and/or ibuprofen up to 600 mg every 6 hours. Prescription sent to [facility] in [place]. Please return for fevers, rapidly worsening flank or back pain, persistent vomiting, inability urinate, probably worsening abdominal back or flank pain, passing out or other new or concerning changes. Prescriptions: New tamsulosin [Flomax] 0.4 mg capsule 0.4 mg PO DAILY Qty: 7 0RF No Action aspirin 81 MG tablet,delayed release (DR/EC) 81 mg PO QDAY Qty: 0 Humira(CF) Pen 40 mg/0.4 mL pen injector kit 40 mg SUBCUT Q2W carvedilol 12.5 mg tablet 12.5 mg PO BID simvastatin 5 mg tablet 5 mg PO ONCE HS lisinopril 2.5 mg tablet 2.5 mg PO DAILY spironolactone 25 mg tablet 25 mg PO DAILY magnesium chloride tablet 64 mg PO BID Label Comments: Pt. takes 2 tabs. cyanocobalamin (vitamin B-12) auto-injector See Rx Instructions .ROUTE .COMPLEX Rx Instructions: 1,000 mcg intramuscularly B Complex-Vitamin B12 tablet 500 mg DAILY Lactobacillus acidophilus capsule 1 cap PO DAILY Referrals: Roscoe Patton MD [Physician] - Stand Alone Forms: Patient Portal/API
[2022-05-24 19:44] LABS: Blood Urea Nitrogen 18 mg/dL (9-20); Calcium 7.7 mg/dL (8.4-10.2); Carbon Dioxide 24 mmol/L (22-32); Chloride 104 mmol/L (98-107); Estimated Glomerular Filt Rate > 60 mL/min (>60); Glucose 95 mg/dL (80-110); HEMOLYSIS 24 (0-50); Potassium 4.2 mmol/L (3.4-5.1); Sodium 137 mmol/L (137-145)
--- NOTE | 2022-05-24 19:53 | DI.CT.S_ITS ---
PROCEDURE: CT KIDNEY URETER BLADDER (KUB) INDICATIONS: hematuria, flank pain TECHNIQUE: Axial sections were acquired from the lung bases to the pubic symphysis. Coronal and sagittal reformats were performed. For radiation dose reduction, the following was used: automated exposure control, adjustment of mA and/or kV according to patient size. COMPARISON: CT, CT ABDOMEN PELVIS W CON, 07/22/2020, 1:18. FINDINGS: Image quality: Excellent. Lung bases: Unremarkable. Heart: No significant findings. URINARY: Right Kidney: Several punctate calculi which themselves are not obstructive but there is [id number] overall right-sided hydronephrosis. Right Ureter: Hydroureter extends from the renal pelvis inferiorly to the bladder level. Just above the bladder level there is a 3 mm distal right ureteral stone and slightly below that virtually at the posterior bladder margin there is a 7 mm calculus that measures 943 Hounsfield units. Left Kidney: Several punctate calculi without hydronephrosis. Left Ureter: No hydroureter. Bladder: Normal wall thickness. No stones. ABDOMEN: Liver: Unremarkable. Gallbladder: Unremarkable. Biliary ducts: Unremarkable. Pancreas: Unremarkable. Spleen: Unremarkable. Adrenal Glands: Unremarkable. Stomach and Bowel: Stomach, small bowel loops, and colon are unremarkable. Peritoneum: No abnormal intraperitoneal fluid. No free air. Ventral Wall: No hernia. Abdominal Nodes: No enlarged retroperitoneal or mesenteric lymph nodes. Vessels: Aorta and inferior vena cava are normal in size. PELVIS: Pelvic Organs: Unremarkable. Pelvic Nodes: Unremarkable. Miscellaneous: No right-sided inguinal hernia is seen, but there is a moderately large left-sided inguinal hernia without evidence of incarceration or strangulation. Bones: Unremarkable. IMPRESSION: Baye-ut-yeszbbxq right-sided hydronephrosis and hydroureter associated with 2 far distal right ureteral stones the largest of which measures up to 7 mm with a radiodensity of 943 Hounsfield units. A stone of this size may not pass without urologic intervention into the bladder lumen. Several punctate renal collecting system calculi are present bilaterally, none of which are obstructive. Moderately large left inguinal hernia extending to the upper scrotum level, without evidence of bowel incarceration or strangulation Dictated by: Lisandro Hinton M.D. on 05/24/2022 at 20:54 Approved by: Lisandro Hinton M.D. on 05/24/2022 at 21:01
[2022-05-24 19:57] LABS: Add Manual Diff / Slide Review NO; Basophils Absolute Auto 0 /uL (0-100); Basophils Percent Auto 0.5 % (0-2); Eosinophils Absolute Auto 200 /uL (0-450); Eosinophils Percent Auto 2.9 % (2-4); Hematocrit 35.7 % (41-53); Hemoglobin 12.1 g/dL (13.5-17.5); Lymphocytes Absolute Auto 900 /uL (1100-4500); Lymphocytes Percent Auto 14.6 % (25-40); Mean Corpuscular HGB Conc 33.9 % (30-36); Mean Corpuscular Hemoglobin 32.4 PG (26-34); Mean Corpuscular Volume 95.5 fL (80-100); Monocytes Absolute Auto 600 /uL (0-900); Monocytes Percent Auto 10.6 % (3-14); Neutrophils Absolute Auto 4300 /uL (1500-7000); Neutrophils Percent Auto 71.4 % (50-75); Platelet Count 205 X10^3/uL (150-400); Red Blood Cell Count 3.74 X10^6/uL (4.5-5.9); Red Cell Distribution Width 13.1 % (11.6-14.8)
[2022-05-24 20:14] LABS: Bacteria Urine None Seen; Culture Indicated Urine Cult Not Indicated; RBC Urine >100/HPF (0-5/HPF); WBC Urine 0-1/HPF (0-5/HPF)
[2022-05-24 20:18] VITALS: BP 134/64; PULSE 65; RESP 18; O2SAT 99
[2022-05-24 21:26] VITALS: BP 134/63; PULSE 65; RESP 16; O2SAT 97
[2022-05-24] MEDS: TAMSULOSIN 0.4 MG CAPSULE PO (21:28)
== END 2022-05-24 21:33 | disposition home or self-care (01) ==
PROVIDERS: Emergency Provider Emergency Medicine
DX: N20.0 Calculus of kidney (principal); K40.90 Unilateral inguinal hernia, without obstruction or gangrene, not specified as recurrent
CPT/HCPCS: 36415; 74176; 80048; 81003; 81015; 85025; 99284

== ENCOUNTER 2023-01-25 17:57 | Emergency (ER) | payer OTHER, SELFPAY ==
[2020-07-22 05:14] VITALS: BMI 23.8
[2023-01-25 18:00] VITALS: BP 163/81; PULSE 76; RESP 16; TEMP 36.8; O2SAT 98; BMI 24.0
--- NOTE | 2023-01-25 18:05 | ED.ARRPALP ---
HPI - Arrhythmia/Palpitations General Chief Complaint: Arrhythmia/Palpitations Stated Complaint: tachy/ palpitations Time Seen by Provider: 01/25/23 18:01 Source: patient and EMS Mode of arrival: EMS History of Present Illness HPI narrative: 72-year-old gentleman with a history of coronary artery disease, tachyarrhythmia including atrial fibrillation and is post pacemaker/defibrillator placement, Crohn's disease with both small and large intestine fistula and short-bowel syndrome,. hypertension, hyperlipidemia who presents today complaining of palpitations while he was sitting on the couch. Simply noticed his heart rate was up in the 80s and it is usually in the mid 70s. Not associated with pain, diaphoresis, dyspnea, orthopnea. Has not noticed increased lower extremity edema. Does note that he was started on mexiletine about 6 weeks ago and has had severe nausea and anorexia. He does have a follow-up appointment in 48 hours with his filler sifter helper. In the meantime he was seen at the [facility] on January 23 for consultation regarding cardiac ablation in light of recurrent ventricular tachycardia with ICD shocks. He was admitted to [facility] on January 14 with ventricular tachycardia that required electrical cardioversion (unclear why he did not have his defibrillator fire) with that admission he is amiodarone had been increased to 400 twice a day and mexiletine increased to 150 3 times a day. He was seen again on January [address] [facility] ER concerned that he was again having episodes of V-tach. Pacemaker interrogation at that time suggested supraventricular tachycardia with no defibrillations administered. Patient reports that he was diagnosed with pneumonia a week ago is on antibiotics does not remember what kind or who actually made the diagnosis. Medications currently include recently decreased dose of amiodarone to 200 mg b.i.d., mexiletine and quinidine was added as of Thursday. He is also on Humira for his Crohn's disease, aspirin, carvedilol, lisinopril, magnesium,simvastatin, spironolactone and vitamin B12 Related Data Home Medications Medication Instructions Recorded Confirmed aspirin 81 mg tablet,delayed 81 mg PO QDAY ##0 05/03/12 07/22/20 release B Complex-Vitamin B12 500 mg DAILY 07/22/20 07/22/20 Lactobacillus acidophilus 1 cap PO DAILY 07/22/20 07/22/20 adalimumab 40 mg/0.4 mL 40 mg SUBCUT Q2W 07/22/20 07/22/20 subcutaneous pen kit (Humira(CF) Pen) carvedilol 12.5 mg tablet 12.5 mg PO BID 07/22/20 07/22/20 cyanocobalamin (vitamin B-12) See Rx Instructions .Route .COMPLEX 07/22/20 07/22/20 lisinopril 2.5 mg tablet 2.5 mg PO DAILY 07/22/20 07/22/20 magnesium chloride 64 mg PO BID 07/22/20 07/22/20 simvastatin 5 mg tablet 5 mg PO ONCE HS 07/22/20 07/22/20 spironolactone 25 mg tablet 25 mg PO DAILY 07/22/20 07/22/20 Previous Rx's Medication Instructions Recorded tamsulosin 0.4 mg capsule (Flomax) 0.4 mg PO DAILY #7 caps 05/24/22 Allergies Allergy/AdvReac Type Severity Reaction Status Date / Time No Known Drug Allergies Allergy Verified 01/25/23 18:03 Review of Systems Review of Systems Narrative: Pertinent positive and negative findings as per HPI Patient History Medical History (Updated 01/25/23 @ 19:36 by Janelle Jonas MD) ASCVD (arteriosclerotic cardiovascular disease) Crohn's disease History of tachycardia Hyperlipidemia Hypertension Surgical History History of abdominal surgery History of heart artery stent History of pacemaker Family History Father Heart attack Mother Diabetes mellitus Sister Non-Hodgkin's lymphoma Social History household members: spouse Smoking Status: Former smoker alcohol intake: current Smoking Status: Former smoker alcohol intake frequency: a few times a month Substance Use Type: does not use Exam Initial Vital Signs Initial Vital Signs: General: Healthy appearing, in no acute distress. Able to give a complete and coherent history. Well-nourished well-developed HEENT: Moist mucous membranes, normal sclera with reactive pupils, Neck: No JVD, supple Respiratory: Lungs are clear to auscultation, no wheezing no rales no rhonchi. Full and symmetrical air movement Cardiac: Regular rate and rhythm no murmurs no bruits Abdomen: Soft, nontender, good bowel tones, no flank pain Skin: Warm and dry, no rashes Neurologic: Grossly neurologically intact with no obvious asymmetries or abnormalities Extremities: No trauma, well perfused Psych: Cooperative, appropriate insight and affect MDM - Arrhythmia/Palpitations MDM Narrative Medical decision making narrative: CC: Palpitations Complicating co-morbidities: Recurrent episodes of ventricular tachycardia, total of 17 episodes in the last 48 hours and he has been paced out of all of them with no shocks delivered. Saw electrophysiology at [facility] on the and has an appointment with his primary filler sifter helper on the . Nonischemic cardiomyopathy, Crohn's disease and was also recently diagnosed with a pneumonia. Data collected from: patient, Social determinants of health that may influence the patients condition: Medical records reviewed: Extensive medical records from the [facility] electrophysiology Cardiology notes recent [facility] hospitalization, follow-up ER visit and cardiology notes are all reviewed summarized in the HPI Differential considered: Fear of cardiac abnormality and AICD shock being delivered, ventricular tachycardia, supraventricular tachycardia, electrolyte abnormalities Exam documented above, pertinent findings include: Exam is completely benign he is entirely paced at a rate of 173 Lab Test results independently reviewed as above. Pertinent findings: CBC shows mild leukocytosis with white count at 12.2 and 84.6 neutrophils. Minimal stable anemia at 12.7 and 38.0 Metabolic panel shows slight increase in creatinine from baseline of 1.1 9 to 1.29. Calcium is slightly low at 8.2 however better than his baseline 7.7 Magnesium is within normal limits ProBNP is slightly elevated at 1010 which is half of what it had been previously Independently reviewed EKG completely atrial paced at a rate of 73 Imaging studies independently reviewed: Chest x-ray shows pacemaker defibrillator in place otherwise unremarkable Pacemaker interrogation does suggest 17 episodes of ventricular tachycardia in the last 48 hours all of which have been paced out with no shocks detected Re-evaluations: Patient is re-evaluated. Remains pain-free the paced rhythm. Reviewed all of the findings of labs chest x-ray and pacemaker interrogation with the patient. He has been having episodes of V-tach appropriately treated by his pacemaker. I suspect that this is the palpation sensation that he has been noting. He is on appropriate medications, has been seen for electrophysiology follow-up 2 days ago has a cardiology follow-up 2 days from now. Has a pacemaker and defibrillator both of which are working appropriately. We will give him copies of studies and lab work done today and have him share those with his filler sifter helper on Thursday. I am not going to suggest any changes to his medications. We did look up amiodarone, mexiletine, Augmentin and doxycycline and there is no listed significant adverse interaction or side effects with that combination. We did discuss the need for additional workup, definitely decided hospitalization for further observation is not required and he is safe for discharge Discharge Plan Departure Patient Disposition: Home Clinical Impression: Ventricular tachyarrhythmia, Biventricular cardiac pacemaker in situ Instructions: DI for Arrhythmias Activity Restrictions/Additional Instructions: Thank you for coming in today Your pacer interrogation does show that you have had a number of episodes of ventricular tachycardia that you have been paced out of. You have not received any shocks. This is likely the palpitations that you are noticing. The blood work is entirely reassuring with no significant electrolyte abnormalities. We looked up some of the more complicated medications and there is no evidence of significant interactions that might be making these episodes worse. Given the fact that your pacemaker defibrillator is working exactly as designed, that you were seen by the gun mechanic at [facility] 2 days ago and have a follow-up with your regular filler sifter helper in 2 days, I believe that home discharge safe. Please do not make any changes to your medications. I have given you copies of studies blood work and the pacer interrogation that we did today for you to share with the filler sifter helper in 2 days. If you find that you are getting worse or develop any new symptoms, please feel free to return to the emergency department for further evaluation. Prescriptions: No Action aspirin 81 MG tablet,delayed release (DR/EC) 81 mg PO QDAY Qty: 0 Humira(CF) Pen 40 mg/0.4 mL pen injector kit 40 mg SUBCUT Q2W carvedilol 12.5 mg tablet 12.5 mg PO BID simvastatin 5 mg tablet 5 mg PO ONCE HS lisinopril 2.5 mg tablet 2.5 mg PO DAILY spironolactone 25 mg tablet 25 mg PO DAILY magnesium chloride tablet 64 mg PO BID Patient Comments: Pt. takes 2 tabs. cyanocobalamin (vitamin B-12) auto-injector See Rx Instructions .ROUTE .COMPLEX Rx Instructions: 1,000 mcg intramuscularly B Complex-Vitamin B12 tablet 500 mg DAILY Lactobacillus acidophilus capsule 1 cap PO DAILY tamsulosin [Flomax] 0.4 mg capsule 0.4 mg PO DAILY Qty: 7 0RF Referrals: Miscellaneous,Doctor, MD [Primary Care Provider] - Stand Alone Forms: Patient Portal/API
[2023-01-25 18:22] VITALS: PULSE 68; RESP 19; O2SAT 98
[2023-01-25 18:30] VITALS: BP 141/79; PULSE 67; RESP 13; O2SAT 98
--- NOTE | 2023-01-25 18:39 | DI.RAD.S_ITS ---
PROCEDURE: XR CHEST 1V INDICATIONS: palpitations TECHNIQUE: One view of the chest was acquired. COMPARISON: [facility], CR, XR CHEST 1 VIEW, 01/18/2023, 20:39. [facility], CR, XR CHEST 1V, 07/22/2020, 5:32. FINDINGS: Surgical changes and devices: An AICD is seen. The leads are seen in stable positions. Lungs and pleura: Lungs are clear. No pleural effusions or pneumothorax. Mediastinum: The cardiac contours are within normal limits. The aorta demonstrates calcification and tortuosity. Bones and chest wall: No suspicious bony lesions. Age-appropriate bony degenerative changes are seen. Overlying soft tissues appear unremarkable. IMPRESSION: Portable chest within normal limits for age. Dictated by: Hakan Marie M.D. on 01/25/2023 at 18:19 Approved by: Hakan Marie M.D. on 01/25/2023 at 18:20
[2023-01-25 18:50] LABS: Add Manual Diff / Slide Review NO; Basophils Absolute Auto 100 /uL (0-100); Basophils Percent Auto 0.6 % (0-2); Eosinophils Absolute Auto 100 /uL (0-450); Eosinophils Percent Auto 0.6 % (2-4); Hemoglobin 12.7 g/dL (13.5-17.5); Lymphocytes Absolute Auto 800 /uL (1100-4500); Lymphocytes Percent Auto 6.3 % (25-40); Mean Corpuscular HGB Conc 33.3 % (30-36); Mean Corpuscular Hemoglobin 31.3 PG (26-34); Mean Corpuscular Volume 93.9 fL (80-100); Monocytes Absolute Auto 1000 /uL (0-900); Monocytes Percent Auto 7.9 % (3-14); Neutrophils Absolute Auto 10400 /uL (1500-7000); Neutrophils Percent Auto 84.6 % (50-75); Platelet Count 286 X10^3/uL (150-400); Red Blood Cell Count 4.05 X10^6/uL (4.5-5.9); White Blood Cell Count 12.2 X10^3/uL (4.5-11.0)
[2023-01-25 18:55] LABS: Alanine Aminotransferase 20 IU/L (<50); Albumin 3.1 g/dL (3.5-5.0); Albumin Globulin Ratio 0.9 (1.0-2.8); Alkaline Phosphatase 68 U/L (38-126); Aspartate Aminotransferase 22 IU/L (17-59); BUN Creatinine Ratio 6.2 (6-22); Bilirubin Total 0.4 mg/dL (0.2-1.3); Blood Urea Nitrogen 8 mg/dL (9-20); Calcium 8.2 mg/dL (8.4-10.2); Carbon Dioxide 26 mmol/L (22-32); Chloride 102 mmol/L (98-107); Estimated Glomerular Filt Rate 58 mL/min (>60); Globulin 3.4 g/dL (1.7-4.1); Glucose 109 mg/dL (80-110); HEMOLYSIS < 15 (0-50); Magnesium 1.7 mg/dL (1.6-2.3); Potassium 3.7 mmol/L (3.4-5.1); Sodium 133 mmol/L (137-145); Total Protein 6.5 g/dL (6.3-8.2)
[2023-01-25 19:00] VITALS: BP 134/70; PULSE 65; RESP 18; O2SAT 97
[2023-01-25 19:04] LABS: NT-proBNP (BNP-Adult 18+) 1010 pg/mL (<125)
[2023-01-25 19:30] VITALS: BP 148/75; PULSE 68; RESP 25; O2SAT 97
== END 2023-01-25 19:46 | disposition home or self-care (01) ==
PROVIDERS: Emergency Provider Emergency Medicine
DX: I47.20 Ventricular tachycardia, unspecified (principal); R79.89 Other specified abnormal findings of blood chemistry; Z95.0 Presence of cardiac pacemaker; Z79.899 Other long term (current) drug therapy
CPT/HCPCS: 71045; 80053; 83735; 83880; 84484; 85025; 93005; 99283; 99284

== ENCOUNTER 2023-12-11 20:38 | Emergency (ER) | payer OTHER, SELFPAY ==
[2020-07-22 05:14] VITALS: BMI 23.8
[2023-12-11] VITALS (13 sets, daily range): BP systolic 109–160; BP diastolic 62–76; PULSE 61–88; RESP 12–34; TEMP 37.2; O2SAT 96–98; BMI 22.8
--- NOTE | 2023-12-11 20:42 | EKG_ITS ---
[place] [id number] [address] [place] [id number] Test Date: 2023-12-11 Pat Name: Vishnu Robins Department: [facility] Room: Gender: Male Orthotic Assistant: FLORIN : 1950 Requested By: Order Number: [id number] Reading MD: Greg Green Measurements Intervals [place] Rate: 75 P: 67 CO: 224 QRS: -71 QRSD: 180 T: 3 QT: 408 QTc: 455 Interpretive Statements Atrial-paced rhythm with prolonged AV conduction with occasional ventricular-paced complexes Left axis deviation Nonspecific intraventricular block Lateral infarct , age undetermined Inferior infarct , age undetermined Electronically Signed On 12-12-2023 18:32:55 PDT by Greg Green
--- NOTE | 2023-12-11 20:45 | DI.RAD.S_ITS ---
PROCEDURE: XR CHEST 1V INDICATIONS: chest pain TECHNIQUE: One view of the chest was acquired. COMPARISON: [facility], CR, XR CHEST 1V, 01/25/2023, 18:42. [facility], CR, XR CHEST 1V, 07/22/2020, 5:32. [facility], CR, XR CHEST 1 VIEW, 08/31/2023, 16:58. FINDINGS: Surgical changes and devices: Left chest wall pulse generator with defibrillator leads Lungs and pleura: No dense consolidation or pleural effusion. Similar prominence of the hilar structures Mediastinum: Normal heart size Bones and chest wall: Degenerative changes IMPRESSION: Limited single view radiograph, without acute abnormality. Dictated by: Srikanth Beauchamp M.D. on 12/11/2023 at 21:51 Approved by: Srikanth Beauchamp M.D. on 12/11/2023 at 21:52
[2023-12-11 21:15] LABS: Add Manual Diff / Slide Review NO; Basophils Absolute Auto 0 /uL (0-100); Basophils Percent Auto 0.7 % (0-2); Eosinophils Absolute Auto 100 /uL (0-450); Eosinophils Percent Auto 1.9 % (2-4); Hematocrit 36.8 % (41-53); Hemoglobin 12.3 g/dL (13.5-17.5); Lymphocytes Absolute Auto 900 /uL (1100-4500); Lymphocytes Percent Auto 16.9 % (25-40); Mean Corpuscular HGB Conc 33.5 % (30-36); Mean Corpuscular Volume 92.8 fL (80-100); Monocytes Absolute Auto 800 /uL (0-900); Monocytes Percent Auto 14.2 % (3-14); Neutrophils Absolute Auto 3700 /uL (1500-7000); Neutrophils Percent Auto 66.3 % (50-75); Platelet Count 199 X10^3/uL (150-400); Red Blood Cell Count 3.97 X10^6/uL (4.5-5.9); Red Cell Distribution Width 13.5 % (11.6-14.8); White Blood Cell Count 5.6 X10^3/uL (4.5-11.0)
[2023-12-11 21:24] LABS: Prothrombin Time 11.6 SECONDS (9.4-12.5)
[2023-12-11 21:26] LABS: PTT Partial Thromboplastin Tim 33 SECONDS (25.1-36.5)
--- NOTE | 2023-12-11 21:26 | ED_ITS ---
HPI - General Adult General Chief complaint: Dizziness Stated complaint: heart issue/Hx vtac Time Seen by Provider: 12/11/23 20:43 Source: patient Mode of arrival: Ambulatory History of Present Illness HPI narrative: 73-year-old male with history of ventricular tachycardia status post ablation, AICD placement presents by private vehicle for general evaluation. Patient states that he was driving earlier this afternoon around 7:00 p.m. when he felt a brief episode of lightheaded. He states that he then felt a ?chemical search? up his body. He became concerned due to his history of V-tach and decided to present for evaluation. Since the initial event at 7:00 p.m. he has had no further symptoms and currently feels at his baseline. Patient states that at his last EP visit he was told that he had a run of ventricular tachycardia back in September, but has had no issues since that he's aware of. Related Data Home Medications Medication Instructions Recorded Confirmed aspirin 81 mg tablet,delayed 81 mg PO QDAY ##0 05/03/12 07/22/20 release B Complex-Vitamin B12 500 mg DAILY 07/22/20 07/22/20 Lactobacillus acidophilus 1 cap PO DAILY 07/22/20 07/22/20 adalimumab 40 mg/0.4 mL 40 mg SUBCUT Q2W 07/22/20 07/22/20 subcutaneous pen kit (Humira(CF) Pen) carvedilol 12.5 mg tablet 12.5 mg PO BID 07/22/20 07/22/20 cyanocobalamin (vitamin B-12) See Rx Instructions .Route .COMPLEX 07/22/20 07/22/20 lisinopril 2.5 mg tablet 2.5 mg PO DAILY 07/22/20 07/22/20 magnesium chloride 64 mg PO BID 07/22/20 07/22/20 simvastatin 5 mg tablet 5 mg PO ONCE HS 07/22/20 07/22/20 spironolactone 25 mg tablet 25 mg PO DAILY 07/22/20 07/22/20 Previous Rx's Medication Instructions Recorded tamsulosin 0.4 mg capsule (Flomax) 0.4 mg PO DAILY #7 caps 05/24/22 Allergies Allergy/AdvReac Type Severity Reaction Status Date / Time No Known Drug Allergies Allergy Verified 12/11/23 20:46 Patient History Medical History History of tachycardia ASCVD (arteriosclerotic cardiovascular disease) Hyperlipidemia Hypertension Crohn's disease Surgical History History of pacemaker History of heart artery stent History of abdominal surgery Family History Father Heart attack Mother Diabetes mellitus Sister Non-Hodgkin's lymphoma Social History household members: spouse Smoking Status: Former smoker alcohol intake: current Smoking Status: Former smoker alcohol intake frequency: holidays/special occasions only Substance Use Type: does not use Exam Initial Vital Signs Initial Vital Signs: Vital Signs Temperature 98.9 F 12/11/23 20:40 Pulse Rate 88 12/11/23 20:40 Respiratory Rate 14 12/11/23 20:40 Blood Pressure 160/70 H 12/11/23 20:40 Pulse Oximetry 97 12/11/23 20:40 Oxygen Delivery Method Room Air 12/11/23 20:40 Const: Awake, alert, no acute distress, nontoxic appearing Cardiac: regular rate, regular rhythm RESP: unlabored, clear bilaterally, no wheezing GI: Soft, nontender, nondistended, no rebound, no guarding MSK: Atraumatic, full range of motion, pulses equal Skin: Warm, Dry, intact, no rashes Neuro: AO x3, CN II-XII grossly intact, moves all extremities Course Orders Ordered: Discontinued Medications Aspirin (Aspirin 81 Mg Chew Tab) 324 mg PO NOW ONE Stop: 12/11/23 20:46 Last Admin: 12/11/23 21:12 Dose: Not Given Documented By: ALTA Vital Signs Vital signs: Vital Signs - 8 hr 12/11/23 20:40 12/11/23 20:42 12/11/23 20:43 Temperature 98.9 F Pulse Rate 88 84 Respiratory Rate 14 Blood Pressure 160/70 H 160/70 H Pulse Oximetry 97 97 Oxygen Delivery Method Room Air 12/11/23 21:00 12/11/23 21:02 12/11/23 21:02 Temperature Pulse Rate 67 66 Respiratory Rate 17 15 Blood Pressure 130/62 Pulse Oximetry 96 96 Oxygen Delivery Method 12/11/23 21:30 12/11/23 21:30 12/11/23 21:50 Temperature Pulse Rate 68 84 Respiratory Rate 34 H 12 Blood Pressure 136/65 Pulse Oximetry 98 96 Oxygen Delivery Method 12/11/23 21:50 12/11/23 22:00 12/11/23 22:00 Temperature Pulse Rate 64 Respiratory Rate 14 Blood Pressure 143/68 H 122/67 Pulse Oximetry 96 Oxygen Delivery Method 12/11/23 22:30 12/11/23 22:30 12/11/23 23:00 Temperature Pulse Rate 63 61 Respiratory Rate 15 19 Blood Pressure 141/65 H Pulse Oximetry 98 97 Oxygen Delivery Method 12/11/23 23:00 12/11/23 23:09 12/11/23 23:53 Temperature Pulse Rate 67 Respiratory Rate 14 Blood Pressure 125/63 109/76 Pulse Oximetry 97 Oxygen Delivery Method 12/11/23 23:54 12/12/23 00:00 12/12/23 00:01 Temperature Pulse Rate 72 70 Respiratory Rate 13 13 Blood Pressure 156/70 H Pulse Oximetry 97 98 Oxygen Delivery Method Room Air Room Air 12/12/23 00:01 12/12/23 00:30 12/12/23 00:31 Temperature Pulse Rate 70 67 68 Respiratory Rate 16 15 15 Blood Pressure Pulse Oximetry 98 96 96 Oxygen Delivery Method Room Air Room Air 12/12/23 00:31 12/12/23 01:00 12/12/23 01:01 Temperature Pulse Rate 66 67 Respiratory Rate 14 14 Blood Pressure 138/68 Pulse Oximetry 98 97 Oxygen Delivery Method Room Air 12/12/23 01:01 Temperature Pulse Rate Respiratory Rate Blood Pressure 134/65 Pulse Oximetry Oxygen Delivery Method Medical Decision Making Lab Data 12/11/23 21:05 12/11/23 21:05 Labs: Lab Results 12/11/23 12/12/23 Range/Units 21:05 00:25 WBC 5.6 (4.5-11.0) X10^3/uL RBC 3.97 L (4.5-5.9) X10^6/uL Hgb 12.3 L (13.5-17.5) g/dL Hct 36.8 L (41-53) % MCV 92.8 (80-100) fL MCH 31.0 (26-34) PG MCHC 33.5 (30-36) % RDW 13.5 (11.6-14.8) % Plt Count 199 (150-400) X10^3/uL Neut % (Auto) 66.3 (50-75) % Lymph % (Auto) 16.9 L (25-40) % [place] % (Auto) 14.2 H (3-14) % Eos % (Auto) 1.9 L (2-4) % Baso % (Auto) 0.7 (0-2) % Neut # (Auto) 3700 (9101-8567) /uL Lymph # (Auto) 900 L (1188-2616) /uL [place] # (Auto) 800 (0-900) /uL Eos # (Auto) 100 (0-450) /uL Baso # (Auto) 0 (0-100) /uL PT 11.6 (9.4-12.5) SECONDS INR 1.0 (0.9-1.3) APTT 33 (25.1-36.5) SECONDS Sodium 136 L (137-145) mmol/L Potassium 4.3 (3.4-5.1) mmol/L Chloride 104 (98-107) mmol/L Carbon Dioxide 30 (22-32) mmol/L BUN 25 H (9-20) mg/dL Creatinine 1.24 (0.66-1.25) mg/dL Estimated GFR > 60 (>60) mL/min BUN/Creatinine Ratio 20.2 (6-22) Glucose 100 (80-110) mg/dL Calcium 8.3 L (8.4-10.2) mg/dL Magnesium 2.1 (1.6-2.3) mg/dL Total Bilirubin 0.5 (0.2-1.3) mg/dL AST 27 (17-59) IU/L ALT 21 (<50) IU/L Alkaline Phosphatase 67 (38-126) U/L Total Creatine Kinase 43 L (55-170) U/L Troponin I < 0.012 0.013 (0.01-0.034) ng/mL NT-Pro-B Natriuret Pep 1310 H (<450) pg/mL Total Protein 6.3 (6.3-8.2) g/dL Albumin 3.3 L (3.5-5.0) g/dL Globulin 3.0 (1.7-4.1) g/dL Albumin/Globulin Ratio 1.1 (1.0-2.8) Lipase 165 (23-300) U/L Imaging Data Chest x-ray: Radiologist's Impression: PROCEDURE: XR CHEST 1V INDICATIONS: chest pain TECHNIQUE: One view of the chest was acquired. COMPARISON: [facility], CR, XR CHEST 1V, 01/25/2023, 18:42. [facility], CR, XR CHEST 1V, 07/22/2020, 5:32. [facility], CR, XR CHEST 1 VIEW, 08/31/2023, 16:58. FINDINGS: Surgical changes and devices: Left chest wall pulse generator with defibrillator leads Lungs and pleura: No dense consolidation or pleural effusion. Similar prominence of the hilar structures Mediastinum: Normal heart size Bones and chest wall: Degenerative changes IMPRESSION: Limited single view radiograph, without acute abnormality. Dictated by: Srikanth Beauchamp M.D. on 12/11/2023 at 21:51 Approved by: Srikanth Beauchamp M.D. on 12/11/2023 at 21:52 ECG Data Interpretation: Atrial paced rhythm 75bpm, no change from prior EKG 01/25/23 MDM Narrative Additional Information: Patient presenting for lightheaded sensation. Currently hemodynamically stable. Laboratory work, chest x-ray, EKG ordered. Pacemaker to be interrogated Pacemaker interrogation reports 2 episodes of SVT and 11 episodes of V-tach over the last several months. It was appear that SVT did correlate to approximate time that patient was symptomatic, however no shocks delivered. Overall report states that pacemaker functioning as normal. Call placed to electrophysiology of [facility] where patient got his ablation and AICD placed. They recommended repeating troponin, if normal then patient could be discharged with follow up next week in EP clinic. Recommended increasing beta-zuleyma. Medication list states patient was on carvedilol, however he states that he was no longer on carvedilol but on 50 mg daily of metoprolol. He states that previously he could not tolerate 100 mg due to dizziness. He was counseled to increase metoprolol to 75 mg daily and follow up with EP clinic. It was recommended that if patient has episodes of lightheadedness then he should avoid driving Discharge Plan Departure Patient Disposition: Home Clinical Impression: Light-headed feeling Instructions: DI for Dizziness-Nonvertigo Activity Restrictions/Additional Instructions: Your repeat blood draw today showed no changes. I spoke with Dr. Blanc at [facility], who recommends that you call the office on Thursday for follow up appointment. Recommend increasing your metoprolol from 50 mg daily to [address] Blanc recommended that if you have lightheaded episodes that you no longer drive Prescriptions: No Action aspirin 81 MG tablet,delayed release (DR/EC) 81 mg PO QDAY Qty: 0 Humira(CF) Pen 40 mg/0.4 mL pen injector kit 40 mg SUBCUT Q2W carvedilol 12.5 mg tablet 12.5 mg PO BID simvastatin 5 mg tablet 5 mg PO ONCE HS lisinopril 2.5 mg tablet 2.5 mg PO DAILY spironolactone 25 mg tablet 25 mg PO DAILY magnesium chloride tablet 64 mg PO BID Patient Comments: Pt. takes 2 tabs. cyanocobalamin (vitamin B-12) auto-injector See Rx Instructions .ROUTE .COMPLEX Rx Instructions: 1,000 mcg intramuscularly B Complex-Vitamin B12 tablet 500 mg DAILY Lactobacillus acidophilus capsule 1 cap PO DAILY tamsulosin [Flomax] 0.4 mg capsule 0.4 mg PO DAILY Qty: 7 0RF Referrals: Miscellaneous,Doctor, [Primary Care Provider] - Stand Alone Forms: Patient Portal/API
[2023-12-11 21:28] LABS: Alanine Aminotransferase 21 IU/L (<50); Albumin 3.3 g/dL (3.5-5.0); Albumin Globulin Ratio 1.1 (1.0-2.8); Alkaline Phosphatase 67 U/L (38-126); Aspartate Aminotransferase 27 IU/L (17-59); BUN Creatinine Ratio 20.2 (6-22); Bilirubin Total 0.5 mg/dL (0.2-1.3); Blood Urea Nitrogen 25 mg/dL (9-20); Calcium 8.3 mg/dL (8.4-10.2); Carbon Dioxide 30 mmol/L (22-32); Chloride 104 mmol/L (98-107); Creatine Kinase 43 U/L (55-170); Estimated Glomerular Filt Rate > 60 mL/min (>60); Glucose 100 mg/dL (80-110); HEMOLYSIS 32 (0-50); Lipase 165 U/L (23-300); Magnesium 2.1 mg/dL (1.6-2.3); Potassium 4.3 mmol/L (3.4-5.1); Sodium 136 mmol/L (137-145); Total Protein 6.3 g/dL (6.3-8.2)
[2023-12-11 21:39] LABS: NT-proBNP (BNP-Adult 18+) 1310 pg/mL (<450); Troponin I < 0.012 ng/mL (0.01-0.034)
--- NOTE | 2023-12-11 23:15 | PC.NURSE ---
This nurse answered phone call from [employer] regarding the pacemaker being interrogated. 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 On November 25 the patient had an episode of V-Tach that was treated. On 12/11/23 the patient also had 2 episodes of SVT. Pacemaker battery needs to be replaced soon. This nurse gave report to his primary RN Camila and Dr. Ovalle. Dr. Ovalle asked that we call patient back to the ED to be seen again.
--- NOTE | 2023-12-11 23:36 | PC.NURSE ---
Patient was discharged prior to call from [employer] d/t missing report that appeared complete. Patient called and asked to return to ED, patient stated he would.
[2023-12-12] VITALS: PULSE 70; RESP 13; O2SAT 98
[2023-12-12 00:01] VITALS: BP 156/70; PULSE 70; RESP 16; O2SAT 98
[2023-12-12 00:30] VITALS: PULSE 67; RESP 15; O2SAT 96
[2023-12-12 00:31] VITALS: BP 138/68; PULSE 68; RESP 15; O2SAT 96
[2023-12-12 00:56] LABS: Troponin I 0.013 ng/mL (0.01-0.034)
[2023-12-12 01:00] VITALS: PULSE 66; RESP 14; O2SAT 98
[2023-12-12 01:01] VITALS: BP 134/65; PULSE 67; RESP 14; O2SAT 97
== END 2023-12-12 01:17 | disposition home or self-care (01) ==
PROVIDERS: Emergency Provider Emergency Medicine
DX: R42 Dizziness and giddiness (principal); R07.9 Chest pain, unspecified; Z95.0 Presence of cardiac pacemaker; Z79.899 Other long term (current) drug therapy
CPT/HCPCS: 36415; 71045; 80053; 82550; 83690; 83735; 83880; 84484; 85025; 85610; 85730; 93005; 99284

== ENCOUNTER → 2024-03-28 14:42 | Outpatient (CLI) | payer OTHER, SELFPAY ==
[2020-07-22 05:14] VITALS: BMI 23.8
== END ==
PROVIDERS: Visit Provider Nurse Practitioner Family
DX: R30.0 Dysuria (principal); N30.01 Acute cystitis with hematuria
CPT/HCPCS: 87077; 87086; 87186

== ENCOUNTER → 2024-06-06 13:23 | Outpatient (CLI) | payer OTHER, SELFPAY ==
[2020-07-22 05:14] VITALS: BMI 23.8
== END ==
PROVIDERS: Referring Provider Nurse Practitioner Family; Visit Provider Nurse Practitioner Family
DX: R30.0 Dysuria (principal); R39.15 Urgency of urination
CPT/HCPCS: 87086

== ENCOUNTER → 2024-09-06 12:24 | Outpatient (CLI) | payer OTHER, SELFPAY ==
[2020-07-22 05:14] VITALS: BMI 23.8
[2024-09-06 14:40] LABS: Influenza A - CEPHEID Flu A NEGATIVE (NEGATIVE); Influenza B - CEPHEID Flu B NEGATIVE (NEGATIVE); Respiratory Syncytial Virus Negative (Negative)
[2024-09-06 15:31] LABS: COVID-19 CEPHEID 4-PLEX PCR Negative (Negative)
== END ==
PROVIDERS: Visit Provider Physician Assistant
DX: R05.1 Acute cough (principal)
CPT/HCPCS: 0241U

== ENCOUNTER 2025-02-02 07:22 | Emergency (ER) | payer OTHER, SELFPAY ==
[2020-07-22 05:14] VITALS: BMI 23.8
[2025-02-02 07:24] VITALS: BP 161/77; PULSE 82; RESP 16; TEMP 36.8; O2SAT 98; BMI 23.6
--- NOTE | 2025-02-02 07:43 | ED.FALL ---
HPI - Fall General Chief Complaint: Fall Stated Complaint: Fell out of bed, Hurt left side of back Time Seen by Provider: 02/02/25 07:38 Source: patient Mode of arrival: Family Vehicle History of Present Illness HPI Narrative: Patient brought here by . Patient states he is having likely a bad dream and rolled out of bed onto carpet at 3:00 a.m. this morning. He awoke immediately when he fell. No loss of consciousness. Denies hitting his head. Complains of left posterior lower rib pain. Denies any other injuries. No head pain neck pain chest pain abdominal pain or limb or extremity pain no pelvic pain or hip pain. Patient is not on any blood thinners. Related Data Home Medications ?Medication ?Instructions ?Recorded ?Confirmed aspirin 81 mg tablet,delayed 81 mg PO QDAY ##0 05/03/12 09/06/24 release B Complex-Vitamin B12 500 mg DAILY 07/22/20 09/06/24 Lactobacillus acidophilus 1 cap PO DAILY 07/22/20 09/06/24 adalimumab 40 mg/0.4 mL 40 mg SUBCUT Q2W 07/22/20 09/06/24 subcutaneous pen kit (Humira(CF) Pen) cyanocobalamin (vitamin B-12) See Rx Instructions .Route .COMPLEX 07/22/20 09/06/24 magnesium chloride 64 mg PO BID 07/22/20 09/06/24 simvastatin 5 mg tablet 5 mg PO ONCE HS 07/22/20 09/06/24 spironolactone 25 mg tablet 25 mg PO DAILY 07/22/20 09/06/24 metoprolol succinate 100 mg 100 mg PO DAILY 03/28/24 09/06/24 tablet,extended release 24 hr COVID vac 24-25(12up)(Mod)(PF) 50 ml IM 06/06/24 09/06/24 mcg/0.5 mL IM syringe (Spikevax [id number](12y up)(PF)) [id number] antigen-AS01E IM 06/06/24 09/06/24 adjuvant(PF) 120 mcg/0.5 mL IM suspension, kit (Arexvy (PF)) budesonide 3 mg mg PO 06/06/24 09/06/24 capsule,delayed,extended release empagliflozin 10 mg tablet mg PO 06/06/24 09/06/24 (Jardiance) flu vacc [id number](65yr up)-PF 180 ml IM 06/06/24 09/06/24 mcg/0.5 mL intramuscular syringe (Fluzone High-Dose Triv 8270-2300 (PF)) lisinopril 5 mg tablet mg PO 06/06/24 09/06/24 lorazepam 0.5 mg tablet mg PO 06/06/24 09/06/24 pantoprazole 40 mg tablet,delayed mg PO DAILY 06/06/24 09/06/24 release Previous Rx's ?Medication ?Instructions ?Recorded tamsulosin 0.4 mg capsule (Flomax) 0.4 mg PO DAILY #7 caps 05/24/22 cefdinir 300 mg capsule 300 mg PO BID #14 caps 03/28/24 benzonatate 200 mg capsule 200 mg PO TID PRN cough #30 caps 09/06/24 guaifenesin 1,200 mg tablet, 1,200 mg PO Q12H #30 tabs 09/06/24 extended release 12 hr lidocaine 5 % topical patch 1 patch topical DAILY #15 ea 02/02/25 Allergies Allergy/AdvReac Type Severity Reaction Status Date / Time sertraline AdvReac Unknown Verified 02/02/25 07:33 Review of Systems Review of Systems Narrative: GENERAL: Negative chills, fatigue, malaise, fever, sweats. HEENT: Negative sinus pain, ear pain, sore throat RESPIRATORY: Negative dyspnea, cough CARDIOVASCULAR: Negative chest pain, palpitations GASTROINTESTINAL: Negative vomiting, nausea, abdominal pain : Negative dysuria, frequency, hematuria MUSCULOSKELETAL: Positive back/muscle or bony pain SKIN: Negative rash, skin lesions NEUROLOGIC: Negative weakness, numbness ROS Unobtainable: All systems reviewed & are unremarkable except as noted in HPI and below Patient History Medical History History of tachycardia ASCVD (arteriosclerotic cardiovascular disease) Hyperlipidemia Hypertension Crohn's disease Surgical History History of pacemaker History of heart artery stent History of abdominal surgery Family History Father Heart attack Mother Diabetes mellitus Sister Non-Hodgkin's lymphoma Social History household members: spouse alcohol intake: current alcohol intake frequency: holidays/special occasions only Exam Narrative Exam Narrative: GENERAL: in no distress, not toxic not dyspneic HEAD: Normocephalic. Nontender face skull scalp no bruising skin injury seen. EYES: Pupils equal round ENT: Mucous membranes moist. NECK: Trachea midline. No midline tenderness or step-off the cervical thoracic or lumbar spine. CARDIOVASCULAR: Regular rate and rhythm RESPIRATORY: Clear to auscultation. Breath sounds equal bilaterally. No wheezes, rales, or rhonchi. GASTROINTESTINAL: Abdomen soft, non-tender EXTREMITIES: No gross deformities. Nontender bilateral shoulders elbows wrists pelvis hips knees and ankles BACK: There is mild left lower posterior rib tenderness no crepitus no flail no bruising seen. NEURO: AOx4. Clear speech SKIN: Warm and dry PSYCH: Not anxious, is cooperative Initial Vital Signs Initial Vital Signs: Vital Signs Temperature 98.2 F 02/02/25 07:24 Pulse Rate 82 02/02/25 07:24 Respiratory Rate 16 02/02/25 07:24 Blood Pressure 161/77 H 02/02/25 07:24 Pulse Oximetry 98 02/02/25 07:24 Oxygen Delivery Method Room Air 02/02/25 07:24 Course Orders Ordered: ED Orders 02/02/25 07:42 CT chest abd pel wo con Stat Vital Signs Vital signs: Vital Signs - 8 hr 02/02/25 07:24 Temperature 98.2 F Pulse Rate 82 Respiratory Rate 16 Blood Pressure 161/77 H Pulse Oximetry 98 Oxygen Delivery Method Room Air MDM - Fall Imaging Data CT chest abdomen pelvis: Radiologist's Impression: [address] [address] [address] Scan Report Signed Patient: Vishnu Robins MR#: [id number] : 1950 Acct:[id number] Age/Sex: 74 / M Date of Service: 02/02/25 Loc: ED Accession Number: [id number] Procedure: CT chest abd pel wo con Ordering Provider: Roscoe Marshall MD PROCEDURE: CT CHEST ABD PEL WO CON INDICATIONS: Left side pain fall/pain TECHNIQUE: After the administration of oral contrast, 5 mm thick sections acquired from the lung apices to the symphysis pubis. 5 mm thick coronal and sagittal reformats acquired, with additional 7 mm coronal MIP reformats through the lungs. For radiation dose reduction, the following was used: automated exposure control, adjustment of mA and/or kV according to patient size. COMPARISON: None. FINDINGS: Image quality: Diagnostic. CHEST: Lower Neck: No enlarged lymph nodes. Thyroid: No thyroid nodules which require sonographic follow up, per consensus guidelines. Axillae: No enlarged lymph nodes. Chest Wall: Unremarkable. Bones: Unremarkable. Lungs and Pleura: No pneumothorax or pleural effusions. No consolidation or suspicious nodules. Heart: Heart size is normal. Severe coronary artery calcifications. Pacemaker. No pericardial effusion. Thoracic Vessels: The aorta and pulmonary arteries demonstrate normal size. Mediastinum and Natalie: No enlarged lymph nodes. Esophagus: No wall thickening. No hiatal hernia. ABDOMEN: Liver: No solid mass. Gallbladder: Absent Biliary ducts: No biliary dilation. Pancreas: No ductal dilation. Spleen: Size is within normal limits. Adrenal Glands: No adrenal nodules. Kidneys and Ureters: No hydronephrosis. No solid mass. No complex renal cystic lesion which requires follow up. Punctate nonobstructing right middle pole 2 mm stone. Stomach and Bowel: Normal colonic caliber, without significant wall thickening. Sigmoid diverticulosis. Ileocecal region anastomotic clips. Multiple small bowel anastomoses. The jejunal anastomosis on coronal image 36 of series 3 and axial image 140 of series 2 appears to have somewhat of a narrowing. Proximal to this, the jejunum measures 4.2 x 4.6 cm. Reference axial image 131 of series 2 and coronal image 36 of series 3. Peritoneum: No abnormal intraperitoneal fluid. No free air. Ventral Wall: No hernia. Abdominal Nodes: No retroperitoneal or mesenteric adenopathy by size criteria. Vessels: Aorta and inferior vena cava are normal in size. PELVIS: Pelvic Organs: Unremarkable. Bladder: Unremarkable. Pelvic Nodes: No enlarged lymph nodes. Miscellaneous: No inguinal hernias are seen. Bones: No aggressive osseous abnormality. No displaced rib fractures. No pelvic fractures. No compression fractures. IMPRESSION: 1. No significant sequelae of acute trauma noted in the chest, abdomen, and pelvis. 2. No acute process in the chest. 3. Severe coronary artery calcifications. 4. Sigmoid diverticulosis. 5. Multiple previous bowel surgeries. There is a jejunal anastomosis which appears to be narrowed with dilatation of the proximal loop of jejunum, of uncertain clinical symptomatology. 6. Right nephrolithiasis. Dictated by: Jacobo Soares M.D. on 02/02/2025 at 9:02 Approved by: Jacobo Soares M.D. on 02/02/2025 at 9:08 [facility] Narrative Medical decision making narrative: Patient brought here by . Patient states he is having likely a bad dream and rolled out of bed onto carpet at 3:00 a.m. this morning. He awoke immediately when he fell. No loss of consciousness. Denies hitting his head. Complains of left posterior lower rib pain. Denies any other injuries. No head pain neck pain chest pain abdominal pain or limb or extremity pain no pelvic pain or hip pain. Patient is not on any blood thinners. MDM After history and exam, exam is reassuring. No blood work indicated. Noncontrast CT chest abdomen pelvis will be ordered. Differential considered: Includes but not limited to rib contusion rib fracture pneumothorax Medical records reviewed: No recent visit for this complaint Imaging studies independently reviewed: CT chest abdomen pelvis no acute finding Consultations: None indicated Re-evaluations: 9:28 a.m.. Updated patient results. Pain is controlled. Return precautions reviewed. They desire discharge home. Discussion: Appropriate for discharge home. Exam is reassuring imaging reassuring pain controlled. They desire discharge home. Diagnosis: Rib contusion Discharge Plan Departure Patient Disposition: Home Clinical Impression: Contusion of rib on left side Qualifiers: Encounter type: initial encounter Qualified Code(s): S29.8XXA - Other specified injuries of thorax, initial encounter Instructions: DI for Rib Contusion Activity Restrictions/Additional Instructions: Your exam and CAT scan imaging are reassuring. Continue home medications. Lidocaine patch prescription has been sent to your pharmacy to continue. Please see family doctor in a week for re-evaluation. Return if worse if any questions or concerns. May continue Tylenol or ibuprofen for pain. Prescriptions: New lidocaine 5 % adhesive patch,medicated 1 patch topical DAILY Qty: 15 0RF Rx Instructions: leave on most painful area for up to 12 hrs No Action guaifenesin 1,200 mg tablet extended release 12hr 1,200 mg PO Q12H Qty: 30 0RF benzonatate 200 mg capsule 200 mg PO TID PRN (Reason: cough) Qty: 30 0RF metoprolol succinate 100 mg tablet extended release 24 hr 100 mg PO DAILY cefdinir 300 mg capsule 300 mg PO BID Qty: 14 0RF budesonide 3 mg capsule,delayed,extend.release PO Patient Comments: [NO ORIGINAL SIG] lorazepam 0.5 mg tablet PO Patient Comments: [NO ORIGINAL SIG] pantoprazole 40 mg tablet,delayed release (DR/EC) PO DAILY lisinopril 5 mg tablet PO Patient Comments: [NO ORIGINAL SIG] Spikevax 6346-4995(12y up)(PF) 50 mcg/0.5 mL syringe IM Fluzone High-Dose Triv 24-25 180 mcg/0.5 mL syringe IM Arexvy (PF) 120 mcg/0.5 mL suspension for reconstitution IM Jardiance 10 mg tablet PO Patient Comments: [NO ORIGINAL SIG] aspirin 81 MG tablet,delayed release (DR/EC) 81 mg PO QDAY Qty: 0 Humira(CF) Pen 40 mg/0.4 mL pen injector kit 40 mg SUBCUT Q2W simvastatin 5 mg tablet 5 mg PO ONCE HS spironolactone 25 mg tablet 25 mg PO DAILY magnesium chloride tablet 64 mg PO BID Patient Comments: Pt. takes 2 tabs. cyanocobalamin (vitamin B-12) auto-injector See Rx Instructions .ROUTE .COMPLEX Rx Instructions: 1,000 mcg intramuscularly B Complex-Vitamin B12 tablet 500 mg DAILY Lactobacillus acidophilus capsule 1 cap PO DAILY tamsulosin [Flomax] 0.4 mg capsule 0.4 mg PO DAILY Qty: 7 0RF Stand Alone Forms: Patient Portal/API
[2025-02-02 09:34] VITALS: BP 138/71; PULSE 59; RESP 16; O2SAT 97
== END 2025-02-02 09:43 | disposition home or self-care (01) ==
PROVIDERS: Emergency Provider Emergency Medicine
DX: S20.212A Contusion of left front wall of thorax, initial encounter (principal); W06.XXXA Fall from bed, initial encounter
CPT/HCPCS: 71250; 74176; 99281; 99284